=== PATIENT | male | born 1950 | race Caucasian/White ===

== ENCOUNTER → 2023-06-06 16:06 | Outpatient (REF) | payer OTHER, SELFPAY | LOC: MRI 3T 16:06 | PROVIDERS: ATTENDING PHYSICIAN Nurse Practitioner Adult Health; FAMILY PHYSICIAN Family Medicine | DX: D47.2 Monoclonal gammopathy (principal); E83.52 Hypercalcemia; Z85.46 Personal history of malignant neoplasm of prostate; C7A.1 Malignant poorly differentiated neuroendocrine tumors | CPT/HCPCS: 72158; A9575 ==

== ENCOUNTER → 2023-06-08 14:52 | Outpatient (REF) | payer OTHER, SELFPAY | LOC: MRI 3T 14:52 | PROVIDERS: ATTENDING PHYSICIAN Internal Medicine Hematology & Oncology; FAMILY PHYSICIAN Family Medicine | DX: D47.2 Monoclonal gammopathy (principal); E83.52 Hypercalcemia; Z85.46 Personal history of malignant neoplasm of prostate; C7A.1 Malignant poorly differentiated neuroendocrine tumors | CPT/HCPCS: 70553; A9575 ==

== ENCOUNTER → 2023-06-19 15:25 | Outpatient (REF) | payer OTHER, SELFPAY ==
[2023-06-19 11:33] LABS: ALT (SGPT) 28 U/L (0-50); AST (SGOT) 370 U/L (17-59); Albumin 3.7 g/dl (3.5-5.0); Alkaline Phosphatase 215 U/L (38-126); Blood Urea Nitrogen 18 mg/dl (9-20); Carbon Dioxide 26 mmol/L (22-30); Chloride 108 mmol/L (98-107); Glucose 110 mg/dl (70-99); Sodium 142 mmol/L (135-145); Total Bilirubin 0.5 mg/dl (0.2-1.3); Total Protein 6.2 g/dl (6.3-8.2); eGFR > 60.00
[2023-06-19 11:36] LABS: % Basophils 0.5 % (0-2); % Eosinophils 0.7 % (0-6); % Immature Granulocytes 2.6 % (0-0.5); % Lymphocytes 8.7 % (20.5-51.1); % Monocytes 8.4 % (1.7-9.3); % Neutrophils 79.1 % (42.2-75.2); Absolute Eosinophils 0.1 10^3/uL (0-0.7); Absolute Immature Granulocytes 0.2 10^3/uL (0-0.05); Absolute Lymphocytes 0.6 10^3/uL (1.2-3.4); Absolute Monocytes 0.6 10^3/uL (0.1-0.6); Absolute Neutrophils 5.8 10^3/uL (1.4-6.5); Hematocrit 29.1 % (39.0-52.0); Mean Corp Hgb Conc. 34.4 g/dL (33.0-37.0); Nucleated Red Blood Cells % 0.3 % (-); Red Blood Cell Count 3.03 10^6/uL (4.70-6.10); Red Cell Dist. Width 14.3 % (11.5-14.5); White Blood Cell Count 7.4 10^3/uL (4.8-10.8)
[2023-06-19 12:10] LABS: Platelet Count 76 10^3/uL (130-400)
== END ==
LOC: OIDL 15:25
PROVIDERS: ATTENDING PHYSICIAN Internal Medicine Hematology & Oncology
DX: D47.2 Monoclonal gammopathy (principal)
CPT/HCPCS: 80053; 85025

== ENCOUNTER 2023-07-08 10:23 | Emergency (ER) | payer OTHER, SELFPAY ==
[2023-07-08 10:28] VITALS: BP 141/93
--- NOTE | 2023-07-08 11:12 | ED.GENMED ---
History of Present Illness
<Kristopher De La Vega PA-C - Last Filed: 07/08/23 13:18>
General
Chief Complaint: Abdominal Symptoms
Source: patient
Exam Limitations: none
Time Seen by Provider: 07/08/23 10:54
Travel History
Have you had any contact with someone who has COVID-19?: No
Do you have any symptoms of coronavirus? Fever > 100 degrees, chills, cough, shortness of breath, sore throat, loss of taste or smell, muscle aches, or headache?: No
History of Present Illness
History of Present Illness:
72-year-old male currently with liver and bone cancer getting chemotherapy through [facility] presents with 5 days worth of bright red blood per rectum. He notes red blood around brown stool when he has bowel movements. He denies abdominal
pain nausea or vomiting. He notes fatigue. With his ongoing cancer, he has had 30 pound weight loss since January. He notes he has an appetite but nothing tastes good so he has to force himself to eat. No urinary symptoms. No other complaints
at this
Past History
<Kristopher De La Vega PA-C - Last Filed: 07/08/23 13:18>
Past History
ED Past Medical History: HTN
ED Past Surgical History: None
Social History
Tobacco: Non-smoker
Alcohol: None
Personal:
Living: alone
Employment: Employed ([employer])
Family History
Family History: Hypertension
Phy Exam
<LYUDMILA Edwards Last Filed: 07/08/23 13:18>
Physical Exam
Physical Exam:
General: Well-appearing male slightly pale no acute respiratory distress
HEENT: Normocephalic atraumatic
Heart: Regular rate and rhythm no murmurs
Lungs: Clear to auscultation bilaterally no wheezing
Abdomen is soft nontender nondistended no guarding or rebound
Rectal exam: There is a left-sided hemorrhoid that is irritated and friable at the anal orifice. Stool itself is brown in color and heme-negative.
Extremities: No sign
Course
<Kristopher De La Vega PA-C - Last Filed: 07/08/23 13:18>
Orders/Labs/Results
Orders:
Orders
07/08/23 11:14
Type+Screen Urgent
Complete Blood Count/With Diff Urgent
Comprehensive Metabolic Panel Urgent
Abnormal Lab Results
07/08/23
11:14
WBC 19.3 H 10^3/uL
(4.8-10.8)
RBC 2.65 L 10^6/uL
(4.70-6.10)
Hgb 8.9 L g/dL
(13.0-18.0)
Hct 26.2 L %
(39.0-52.0)
MCV 98.9 H fL
(80.0-94.0)
MCH 33.6 H pg
(27.0-31.0)
RDW 17.1 H %
(11.5-14.5)
Plt Count 56 L 10^3/uL
(130-400)
MPV 11.3 H fL
(7.4-10.4)
Abs Immat Gran (auto) 0.3 H 10^3/uL
(0-0.05)
Absolute Neuts (auto) 17.3 H 10^3/uL
(1.4-6.5)
Absolute Lymphs (auto) 0.7 L 10^3/uL
(1.2-3.4)
Absolute Monos (auto) 0.8 H 10^3/uL
(0.1-0.6)
Immature Gran % 1.5 H %
(0-0.5)
Neutrophils % 89.7 H %
(42.2-75.2)
Lymphocytes % 3.8 L %
(20.5-51.1)
Chloride 108 H mmol/L
(98-107)
Glucose 162 H mg/dl
(70-99)
AST 359 H U/L
(17-59)
Alkaline Phosphatase 247 H U/L
(38-126)
07/08/23 11:14
07/08/23 11:14
Vital Signs
Initial and Last Documented VS:
Initial Vital Signs
Temp Pulse Resp BP Pulse Ox
98.2 F 78 18 141/93 99
07/08/23 10:28 07/08/23 10:28 07/08/23 10:28 07/08/23 10:28 07/08/23 10:28
Last Documented Vital Signs
Temp Pulse Resp BP Pulse Ox
98.2 F 75 15 134/82 95
07/08/23 10:28 07/08/23 12:15 07/08/23 12:15 07/08/23 12:00 07/08/23 12:15
<Meño Schwartz MD - Last Filed: 07/08/23 12:20>
Orders/Labs/Results
Orders:
Orders
07/08/23 11:14
Type+Screen Urgent
Complete Blood Count/With Diff Urgent
Comprehensive Metabolic Panel Urgent
Abnormal Lab Results
07/08/23
11:14
WBC 19.3 H 10^3/uL
(4.8-10.8)
RBC 2.65 L 10^6/uL
(4.70-6.10)
Hgb 8.9 L g/dL
(13.0-18.0)
Hct 26.2 L %
(39.0-52.0)
MCV 98.9 H fL
(80.0-94.0)
MCH 33.6 H pg
(27.0-31.0)
RDW 17.1 H %
(11.5-14.5)
Plt Count 56 L 10^3/uL
(130-400)
MPV 11.3 H fL
(7.4-10.4)
Abs Immat Gran (auto) 0.3 H 10^3/uL
(0-0.05)
Absolute Neuts (auto) 17.3 H 10^3/uL
(1.4-6.5)
Absolute Lymphs (auto) 0.7 L 10^3/uL
(1.2-3.4)
Absolute Monos (auto) 0.8 H 10^3/uL
(0.1-0.6)
Immature Gran % 1.5 H %
(0-0.5)
Neutrophils % 89.7 H %
(42.2-75.2)
Lymphocytes % 3.8 L %
(20.5-51.1)
Chloride 108 H mmol/L
(98-107)
Glucose 162 H mg/dl
(70-99)
AST 359 H U/L
(17-59)
Alkaline Phosphatase 247 H U/L
(38-126)
07/08/23 11:14
07/08/23 11:14
Vital Signs
Initial and Last Documented VS:
Initial Vital Signs
Temp Pulse Resp BP Pulse Ox
98.2 F 78 18 141/93 99
07/08/23 10:28 07/08/23 10:28 07/08/23 10:07/08/23 10:07/08/23 10:28
Last Documented Vital Signs
Temp Pulse Resp BP Pulse Ox
98.2 F 75 15 134/82 95
07/08/23 10:28 07/08/23 12:15 07/08/23 12:15 07/08/23 12:00 07/08/23 12:15
<Kristopher De La Vega PA-C - Last Filed: 07/08/23 13:18>
MDM/Problems Addressed
Differential Diagnosis Includes:
Bright red blood per rectum. Exam most consistent with hemorrhoidal. No obvious evidence of fissure. Do not suspect rapid upper GI bleed secondary to stable vital signs. Stool itself has no blood in it.
Will check blood count and platelets.
<Kristopher De La Vega PA-C - Last Filed: 07/08/23 13:18>
*Critical Care Note
Total Time (30-74mins, 75-104mins- exclusive of procedures): Not Applicable
<Kristopher De La Vega PA-C - Last Filed: 07/08/23 13:18>
Update Note
Update Note:
Hemoglobin 8.9 white blood cell count 19.3. Platelets 56,000. Vital signs stable patient appears well. Likely source is hemorrhoidal. Discussed with oncology regarding the leukocytosis. He received Neupogen 8 days ago which is peak time per
oncology for leukocytosis to occur. Given benign abdominal exam do not suspect factious process. Stable for discharge with topical steroids and follow-up. Instructed to have blood checked next week for repeat platelet count and Hgb.
ED Attending Note
<Kristopher De La Vega PA-C - Last Filed: 07/08/23 13:18>
-
Portions of this chart may have been created with voice recognition software.� Occasional wrong word or��sound alike� substitutions may have occurred due to the inherent limitations of voice recognition software.
<Meño Schwartz MD - Last Filed: 07/08/23 12:20>
ED Attending Note
Patient seen and examined by attending physician: Yes
I performed the substantive portion of visit, reviewed & personally made and approve the management plan that is documented in note by myself or ANGELO.: Yes
ED Attending Note:
72-year-old male currently on chemotherapy. Complaining of bright red rectal bleeding. Not in the stool but around the stool. Has been daily for a week. Patient feels at baseline. Patient received Neupogen last week. No abdominal pain. Some
rectal irritation but no pain.
On exam patient is nontoxic in no distress. Warm and dry. Grossly nonfocal. Benign abdomen. Rectal exam was done by the physician commissary assistant. All consistent with hemorrhoidal bleeding. Feel reasonable to treat this with outpatient hemorrhoidal
management and close follow-up. We will let hematology oncology know about the labs. Leukocytosis likely secondary to Neupogen. Platelets have been running lower with the chemo.
Discharge Plan
Departure
Patient Disposition: Home (Routine Discharge)
Date of Disposition: 07/08/23
Time of Disposition: 13:16
Patient with high blood pressure during this ER visit?: No
Discharge Problem:
Hemorrhoids
Instructions: Hemorrhoids
Prescriptions:
New
hydrocortisone [Proctocort] 1 % cream
1 applic topical TID Qty: 28.35 0RF
No Action
hydralazine 50 mg Tablet
50 mg PO BID
bupropion HCl 150 mg Tablet Sustained-Release 12 Hr
150 mg PO DAILY
atenolol 25 mg Tablet
25 mg PO HS
tamsulosin 0.4 mg Capsule
0.4 mg PO DAILY
omeprazole 20 mg Capsule,Delayed Release(Dr/Ec)
20 mg PO DAILY
allopurinol 300 mg Tablet
300 mg PO DAILY
eplerenone 50 mg Tablet
100 mg PO BID
oxycodone 5 mg Tablet
5 mg PO Q6H PRN (Reason: pain)
Patient Comments:
only takes at night
Referrals:
Meño Jimenez DO [Family Provider] -
Activity Restrictions/Additional Instructions:
Use topical steroid as directed. Keep stool soft. Please return here for worsening bleeding. Please check blood work this week to recheck blood count and platelets.
Interventions
Interventions:
*Risk Screen - Suicide Last Done: 07/08/23 11:05
*General Assessment Last Done: 07/08/23 11:05
*Neglect/Abuse Screening Last Done: 07/08/23 11:05
ED- Fall Risk Assessment Last Done: 07/08/23 11:05
*ED COVID-19 Vaccine History Last Done: 07/08/23 11:05
VI-Dbrfuz-Btcqpmzgza Assessment Last Done: 07/08/23 11:05
[2023-07-08 11:22] VITALS: BP 138/88
[2023-07-08 11:35] LABS: % Basophils 0.8 % (0-2); % Eosinophils 0.3 % (0-6); % Immature Granulocytes 1.5 % (0-0.5); % Lymphocytes 3.8 % (20.5-51.1); % Monocytes 3.9 % (1.7-9.3); % Neutrophils 89.7 % (42.2-75.2); Absolute Basophils 0.2 10^3/uL (0-0.2); Absolute Eosinophils 0.1 10^3/uL (0-0.7); Absolute Immature Granulocytes 0.3 10^3/uL (0-0.05); Absolute Lymphocytes 0.7 10^3/uL (1.2-3.4); Absolute Monocytes 0.8 10^3/uL (0.1-0.6); Absolute Neutrophils 17.3 10^3/uL (1.4-6.5); Hematocrit 26.2 % (39.0-52.0); Hemoglobin 8.9 g/dL (13.0-18.0); Mean Corpuscular Hgb 33.6 pg (27.0-31.0); Mean Corpuscular Volume 98.9 fL (80.0-94.0); Nucleated Red Blood Cells % 0 % (-); Red Blood Cell Count 2.65 10^6/uL (4.70-6.10); Red Cell Dist. Width 17.1 % (11.5-14.5); White Blood Cell Count 19.3 10^3/uL (4.8-10.8)
[2023-07-08 11:43] LABS: ALT (SGPT) 25 U/L (0-50); AST (SGOT) 359 U/L (17-59); Albumin 4.1 g/dl (3.5-5.0); Alkaline Phosphatase 247 U/L (38-126); Blood Urea Nitrogen 14 mg/dl (9-20); Calcium 8.4 mg/dl (8.4-10.2); Carbon Dioxide 24 mmol/L (22-30); Chloride 108 mmol/L (98-107); Glucose 162 mg/dl (70-99); Sodium 138 mmol/L (135-145); Total Bilirubin 0.5 mg/dl (0.2-1.3); Total Protein 6.6 g/dl (6.3-8.2); eGFR > 60.00
[2023-07-08 11:57] LABS: Platelet Count 56 10^3/uL (130-400)
[2023-07-08 11:58] LABS: Mean Platelet Volume 11.3 fL (7.4-10.4)
[2023-07-08 12:00] VITALS: BP 134/82
[2023-07-08 13:00] VITALS: BP 132/80
[2023-07-08 13:42] VITALS: BP 132/80
== END 2023-07-08 13:43 | disposition home or self-care (01) ==
LOC: EMR 10:23
PROVIDERS: Physician Assistant; EMERGENCY PHYSICIAN Emergency Medicine; FAMILY PHYSICIAN Family Medicine
DX: K62.5 Hemorrhage of anus and rectum (principal); K64.9 Unspecified hemorrhoids; R63.4 Abnormal weight loss; R53.83 Other fatigue; C22.8 Malignant neoplasm of liver, primary, unspecified as to type; C79.51 Secondary malignant neoplasm of bone; I10 Essential (primary) hypertension
CPT/HCPCS: 99283; 80053; 85025; 86850; 86900; 86901

== ENCOUNTER 2023-07-13 10:03 | Emergency (ER) | payer OTHER, SELFPAY ==
[2023-07-13 10:09] VITALS: BP 130/87
--- NOTE | 2023-07-13 11:01 | ED.GENMED ---
History of Present Illness
<Andie Koroma PA-C - Last Filed: 07/13/23 12:54>
General
Chief Complaint: Musculo-Skeletal Complaint
Source: patient
Exam Limitations: none
Time Seen by Provider: 07/13/23 10:42
Nursing documentation reviewed up to this point in time: agreed with
Travel History
Have you had any contact with someone who has COVID-19?: No
Do you have any symptoms of coronavirus? Fever > 100 degrees, chills, cough, shortness of breath, sore throat, loss of taste or smell, muscle aches, or headache?: No
History of Present Illness
History of Present Illness:
Patient is a 72-year-old male currently undergoing chemotherapy for liver/bone cancer presenting for evaluation of right shoulder pain. He states that he was attempting to start his generator on Monday due to a power outage but was unable to
started due to generalized weakness-which he is attributing to his chemotherapy. He states that on Monday morning he noticed pain in his right shoulder worse with movement. Pain persisted and this morning he was planning on coming to the
emergency department for evaluation when he noticed he had significant bruising on his right flank. He still has pain in right shoulder worse with movement but denies any numbness/tingling of right upper extremity.
He denies any chest pain, shortness of breath, urinary symptoms. He denies any abdominal pain. He denies any trauma or falls.
Patient is not on any blood thinners. He does report low platelet count due to chemotherapy.
Past History
<Andie Koroma PA-C - Last Filed: 07/13/23 12:54>
Past History
ED Past Medical History: HTN
ED Past Surgical History: None
Social History
Tobacco: Non-smoker
Alcohol: None
Personal:
Living: alone
Employment: Employed ([employer])
Family History
Family History: Hypertension
Phy Exam
<Andie Koroma PA-C - Last Filed: 07/13/23 12:54>
Physical Exam
Physical Exam:
General: Well appearing and non-toxic
Vitals: Tachycardic, otherwise vital signs stable, afebrile
HEENT: Atraumatic, normocephalic; protecting airway
Neck: appears supple, no cervical spine or midline spinal tenderness
CV: Tachycardic, regular rhythm, heart sounds normal, no evidence of cyanosis
Resp: No evidence of respiratory distress, lungs clear bilaterally
Abd: Soft, nontender, non-distended; no CVA tenderness
Extremities: Pain with abduction of right shoulder but no tenderness to palpation, no obvious deformity of right upper extremity, active shoulder adduction fully intact against resistance; right upper extremity neurovascularly intact; full range of
motion of right elbow and right wrist, radial pulse palpable
Neuro: alert and oriented x 3; grossly intact
Psych: Normal affect
Skin: Intact, no rashes�significant ecchymosis on lower right axilla and right flank
Course
<Andie Koroma PA-C - Last Filed: 07/13/23 12:54>
Orders/Labs/Results
Orders:
Orders
07/13/23 11:02
Shoulder, Right 2 Views [CR Shoulder - Right Min 2 View] Urgent
Comment:
Reason For Exam: right shoulder pain
07/13/23 11:07
Ribs, Right 3 View W/PA Chest [CR Ribs-right 3 Vw W/pa Chest*] Urgent
Comment:
Reason For Exam: bruising right flank
07/13/23 12:42
Sling Right-Treatment ONCE
Vital Signs
Initial and Last Documented VS:
Initial Vital Signs
Temp Pulse Resp BP Pulse Ox
36.5 C 110 16 130/87 98
07/13/23 10:09 07/13/23 10:09 07/13/23 10:09 07/13/23 10:09 07/13/23 10:09
Last Documented Vital Signs
Temp Pulse Resp BP Pulse Ox
36.5 C 99 16 130/87 99
07/13/23 10:09 07/13/23 13:19 07/13/23 10:09 07/13/23 10:09 07/13/23 13:19
<Armando Aguirre MD - Last Filed: 07/13/23 14:38>
Orders/Labs/Results
Orders:
Orders
07/13/23 11:02
Shoulder, Right 2 Views [CR Shoulder - Right Min 2 View] Urgent
Comment:
Reason For Exam: right shoulder pain
07/13/23 11:07
Ribs, Right 3 View W/PA Chest [CR Ribs-right 3 Vw W/pa Chest*] Urgent
Comment:
Reason For Exam: bruising right flank
07/13/23 12:42
Sling Right-Treatment ONCE
Vital Signs
Initial and Last Documented VS:
Initial Vital Signs
Temp Pulse Resp BP Pulse Ox
36.5 C 110 16 130/87 98
07/13/23 10:09 07/13/23 10:09 07/13/23 10:09 07/13/23 10:09 07/13/23 10:09
Last Documented Vital Signs
Temp Pulse Resp BP Pulse Ox
36.5 C 99 16 130/87 99
07/13/23 10:09 07/13/23 13:19 07/13/23 10:09 07/13/23 10:09 07/13/23 13:19
<Andie Koroma PA-C - Last Filed: 07/13/23 12:54>
MDM/Problems Addressed
Differential Diagnosis Includes:
Rotator cuff injury, bursitis, ligamentous injury/sprain, tendinitis, doubt fracture
MDM/Problems Addressed:
Patient is a 72-year-old male currently undergoing chemotherapy for liver/bone cancer presenting for evaluation of right shoulder pain with associated bruising of right lower axilla and flank. Initially noticed on Monday morning after attempting
to start generator on Monday. He does report low platelet counts with chemotherapy. No chest pain, shortness of breath. No recent trauma or falls. Patient is slightly tachycardic otherwise vital signs stable. Physical exam as documented above.
He does have limited shoulder abduction due to pain with no obvious deformity or bony tenderness. There is associated significant ecchymoses of right lower axilla and flank. I suspect this is likely due to low platelet count. Minimal tenderness
overlying bruising. He denies any analgesia at this time. Will check x-ray of right shoulder and right ribs given ecchymosis. will reassess
X-ray of right shoulder and right ribs show no acute fractures, dislocations, separations. There were some degenerative changes seen and some lesions consistent with metastatic disease on the proximal humerus, scapula, right ribs. Patient has
known liver cancer with mets to bone. Findings were discussed with patient.
Likely shoulder sprain or ligament injury with ecchymoses related to low platelets. No acute findings on x-ray. Will discharge with shoulder sling, Ortho follow-up as needed. Patient will follow-up with oncologist regarding lesion seen on x-ray
and for recommendations on pain control given he was told to avoid the Tylenol and NSAIDs. Patient comfortable this plan. All questions answered.
Chronic conditions affecting care:
Liver/bone cancer with thrombocytopenia
Acute Exacerbation and/or Progression of Chronic Illness:
Metastatic disease
<Andie Koroma PA-C - Last Filed: 07/13/23 12:54>
*Radiology
Radiology exam reviewed: preliminary read by ED provider and radiology read reviewed
*Pulse Oximetry
Patient hypoxic: no
*Quality Assurance/R&D Lab Technician Interpretation
Rate: Quality Assurance/R&D Lab Technician- N/A
*Critical Care Note
Total Time (30-74mins, 75-104mins- exclusive of procedures): Not Applicable
ED Attending Note
<Andie Koroma PA-C - Last Filed: 07/13/23 12:54>
-
Portions of this chart may have been created with voice recognition software.� Occasional wrong word or��sound alike� substitutions may have occurred due to the inherent limitations of voice recognition software.
<Armando Aguirre MD - Last Filed: 07/13/23 14:38>
ED Attending Note
Patient seen and examined by attending physician: Yes
ED Attending Note:
HPI: 72-year-old male with history as documented presents to the emergency room for evaluation of right shoulder pain. Patient reports that he was pulling the cord to start his generator when his power went out on Monday and the next day he woke up
with significant pain in the right shoulder and pain with lifting the right arm. Pain has continued since today he woke up he noticed he had some bruising in the right chest wall and decided to come to the emergency room to be assessed. He denies
any chest pain. Denies any falls or trauma to the chest wall. He denies any shortness of breath. He denies any blood thinners.
ROS: Positive for shoulder pain; negative for chest pain, shortness of breath
Physical exam:
General: Well appearing and non-toxic
HEENT: protecting airway
Neck: appears supple
CV: No evidence of cyanosis; he does have some ecchymosis along the right chest wall in the midaxillary line but no significant tenderness
Resp: No accessory muscle use
Abd: Non-distended
Extremities: No deformity of the right shoulder; he has some mild tenderness along the anterior humeral head; he has pain with abduction and external rotation but is able to move his right shoulder through full active range of motion
Neuro: Alert
Psych: Normal affect
Skin: Intact
Differential diagnosis: Rotator cuff tear, rotator cuff tendinitis, fracture, dislocation; must consider rib fracture although suspect ecchymosis is from gravity causing migration of blood from the shoulder injury
Medical decision m[age]-year-old male presents for evaluation of right shoulder injury; today noted some bruising to his chest wall although he has no chest wall pain or trauma. Exam as above sent for x-ray of the shoulder and ribs which showed
no fractures. Suspect likely rotator cuff injury or tendinopathy and suspect chest wall bruising is from migration of blood from shoulder injury due to gravity. Will plan to place patient in sling refer to orthopedics for follow-up. He feels
comfortable with this plan. Spoke about return precautions all questions answered.
Chronic conditions affecting care: N/A
Acute exacerbation or progression of chronic illness: N/A
History source: Patient
Data reviewed: N/A
Medications/testing considered: N/A
Social determinants of health: N/A
Discussion with other providers: N/A
Discharge Plan
Departure
Patient Disposition: Home (Routine Discharge)
Date of Disposition: 07/13/23
Time of Disposition: 12:43
Patient with high blood pressure during this ER visit?: Yes
Condition: Good
Covid-19: Not Applicable
Discharge Problem:
Injury of right shoulder
Instructions: Shoulder Pain (DC), How to Use a Shoulder Sling, BLOOD PRESSURE
Prescriptions:
No Action
hydralazine 50 mg Tablet
50 mg PO BID
bupropion HCl 150 mg Tablet Sustained-Release 12 Hr
150 mg PO DAILY
atenolol 25 mg Tablet
25 mg PO HS
tamsulosin 0.4 mg Capsule
0.4 mg PO DAILY
omeprazole 20 mg Capsule,Delayed Release(Dr/Ec)
20 mg PO DAILY
allopurinol 300 mg Tablet
300 mg PO DAILY
eplerenone 50 mg Tablet
100 mg PO BID
oxycodone 5 mg Tablet
5 mg PO Q6H PRN (Reason: pain)
Patient Comments:
only takes at night
hydrocortisone [Proctocort] 1 % cream
1 applic topical TID Qty: 28.35 0RF
Referrals:
Meño Jimenez, DO [Family Provider] -
Nabor Morgan MD [Active] - As needed
Activity Restrictions/Additional Instructions:
- Return to the emergency department with any severe pain, worsening in bruising, numbness/tingling in right arm, high fevers, significant swelling, worsening in current symptoms, or any other concerns
-You can use the shoulder sling over the next few weeks for comfort. As discussed�you should follow-up with your oncologist for the most appropriate pain regimen.
-As discussed�there were some lucent/lytic lesions seen on the x-ray of the shoulder consistent with likely metastatic disease. You should follow-up with your oncologist for further evaluation/management
-If symptoms persist/worsen�you should follow-up with Orthopedics
Interventions
Interventions:
*Risk Screen - Suicide Last Done: 07/13/23 13:19
*General Assessment Last Done: 07/13/23 13:19
*Neglect/Abuse Screening Last Done: 07/13/23 13:19
ED- Fall Risk Assessment Last Done: 07/13/23 13:19
*ED COVID-19 Vaccine History Last Done: 07/13/23 10:09
*Nursing Disposition Last Done: 07/13/23 13:19
ED-Musculoskeletal Assessment Last Done: 07/13/23 13:19
Discharge Date and Time
Discharge Date/Time: 07/13/23 13:20
== END 2023-07-13 13:20 | disposition home or self-care (01) ==
LOC: EMR 10:03
PROVIDERS: EMERGENCY PHYSICIAN Emergency Medicine; FAMILY PHYSICIAN Family Medicine
DX: S49.91XA Unspecified injury of right shoulder and upper arm, initial encounter (principal); S20.211A Contusion of right front wall of thorax, initial encounter; X58.XXXA Exposure to other specified factors, initial encounter; I10 Essential (primary) hypertension; C79.51 Secondary malignant neoplasm of bone; D69.6 Thrombocytopenia, unspecified; Z82.49 Family history of ischemic heart disease and other diseases of the circulatory system; Z85.46 Personal history of malignant neoplasm of prostate
CPT/HCPCS: 99283; 71101; 73030

== ENCOUNTER 2023-07-20 10:35 | Outpatient (RCR) | payer OTHER, SELFPAY ==
[2023-07-19 12:09] VITALS: BP 167/92
[2023-07-19 12:27] VITALS: BP 154/83
[2023-07-19 14:18] VITALS: BP 164/92
[2023-07-20 11:24] VITALS: BP 144/90
[2023-07-20 11:42] VITALS: BP 132/81
[2023-07-20 13:56] VITALS: BP 139/83
== END 2023-07-30 23:59 | disposition home or self-care (01) ==
LOC: OID 10:35
PROVIDERS: ATTENDING PHYSICIAN Internal Medicine Hematology & Oncology; FAMILY PHYSICIAN Family Medicine
DX: D47.2 Monoclonal gammopathy (principal)
CPT/HCPCS: 36415; 36430; 86850; 86900; 86901; 86920; P9016

== ENCOUNTER → 2023-08-11 08:51 | Outpatient (REF) | payer OTHER, SELFPAY | LOC: PET 08:51 | PROVIDERS: ATTENDING PHYSICIAN Internal Medicine Hematology & Oncology | DX: C7A.1 Malignant poorly differentiated neuroendocrine tumors (principal) | CPT/HCPCS: 78815; A9552 ==

== ENCOUNTER → 2023-10-13 11:36 | Outpatient (REF) | payer OTHER, SELFPAY | LOC: RAD 11:36 | PROVIDERS: ATTENDING PHYSICIAN Internal Medicine Hematology & Oncology; FAMILY PHYSICIAN Family Medicine | DX: Z85.46 Personal history of malignant neoplasm of prostate (principal); C7A.1 Malignant poorly differentiated neuroendocrine tumors; G89.3 Neoplasm related pain (acute) (chronic) | CPT/HCPCS: 71275; Q9967 ==

== ENCOUNTER 2023-10-16 00:42 | Emergency (ER) | payer OTHER, SELFPAY ==
[2023-10-16] VITALS (7 sets, daily range): BP systolic 136–149; BP diastolic 96–109; BMI 20.6
--- NOTE | 2023-10-16 00:50 | ED.GENMED ---
History of Present Illness
<Sunil Mcmullen PA-C - Last Filed: 10/16/23 14:59>
General
Chief Complaint: Abdominal Pain
Time Seen by Provider: 10/16/23 00:49
History of Present Illness
History of Present Illness:
73 yo male w/ hx of metastatic neuroendocrine tumor presents to the Emergency Department for evaluation of RUQ Pain beginning this evening, worsening since onset. Somewhat improved after receiving 15mg IV toradol enroute via EMS. Not currently on
chemotherapy. Reports he has 'lived on Boost' for 6+ months. No associated chest pain, fevers. On arrival is diaphoretic, but he states 'the rig was hot'. Of note, had a CTA chest 3d ago that was negative for PE.
Past History
<Sunil Mcmullen PA-C - Last Filed: 10/16/23 14:59>
Past History
ED Past Medical History: HTN
ED Past Surgical History: None
Social History
Tobacco: Non-smoker
Alcohol: None
Personal:
Living: alone
Employment: Employed ([employer])
Family History
Family History: Hypertension
Review of Systems
<Sunil Mcmullen PA-C - Last Filed: 10/16/23 14:59>
Review of Systems
Allergies reviewed?: Yes
All Other Systems: ROS reviewed and negative except as documented in HPI and ROS
Phy Exam
<Sunil Mcmullen PA-C - Last Filed: 10/16/23 14:59>
Physical Exam
Physical Exam:
GEN: Chronically ill appearing, diaphoretic, NAD
Eyes: PERRLA, EOMs intact, no scleral icterus
HENT: NCAT, oral mucosa moist
Lungs: CTAB, no wheezes, rales, rhonchi, normal chest wall excursion
Chest: Port in R upper chest wall
Cardiac: Tachycardic, regular
Abdomen: Hepatomegaly w/ RUQ firmness noted; markedly tender to RUQ and RLQ
Neuro: AO x 3
MSK: No gross deformity or ecchymosis. No edema. No digital clubbing
Skin: No rashes, petechiae. Generally pale
Psych: Calm, cooperative, proper hygiene
Course
<Sunil Mcmullen PA-C - Last Filed: 10/16/23 14:59>
Orders/Labs/Results
Orders:
Orders
10/16/23 00:49
Electrocardiogram (*1) Urgent
Reason for Study: Abdominal Pain
CT Abd/Pel (IV only)-DH only Urgent
Comment:
Reason For Exam: RUQ pain
EKG- Treatment ONCE
0.9% Sodium Chloride 1000 ml [Nss] 1,000 ml IV BOLUS
10/16/23 00:53
Complete Blood Count/With Diff Urgent
Comprehensive Metabolic Panel Urgent
Lipase Urgent
Prothrombin Time Urgent
10/16/23 00:54
Type+Screen Urgent
Lactic Acid Q4H
Comment: CANCEL 2nd LACTIC ACID IF 1st LACTIC ACID IS LESS THAN 2
Blood Culture Q30M
RUT Source: Blood/Venous
Specimen Description:
Blood Culture Q30M
RUT Source: Blood/Venous
Specimen Description:
10/16/23 05:43
Oxycodone [Roxicodone] 5 mg PO NOW STA
Abnormal Lab Results
10/16/23 10/16/23
00:53 00:54
WBC 12.8 H 10^3/uL
(4.8-10.8)
RBC 3.56 L 10^6/uL
(4.70-6.10)
Hgb 11.9 L g/dL
(13.0-18.0)
Hct 34.7 L %
(39.0-52.0)
MCV 97.5 H fL
(80.0-94.0)
MCH 33.4 H pg
(27.0-31.0)
RDW 14.6 H %
(11.5-14.5)
MPV 10.9 H fL
(7.4-10.4)
Abs Immat Gran (auto) 0.1 H 10^3/uL
(0-0.05)
Absolute Neuts (auto) 11.3 H 10^3/uL
(1.4-6.5)
Absolute Lymphs (auto) 0.5 L 10^3/uL
(1.2-3.4)
Absolute Monos (auto) 0.9 H 10^3/uL
(0.1-0.6)
Immature Gran % 0.6 H %
(0-0.5)
Neutrophils % 88.4 H %
(42.2-75.2)
Lymphocytes % 3.9 L %
(20.5-51.1)
PT 15.7 H Sec
(11.4-14.6)
Carbon Dioxide 19 L mmol/L
(22-30)
BUN 33 H mg/dl
(9-20)
Creatinine 1.4 H mg/dL
(0.7-1.3)
Glucose 148 H mg/dl
(70-99)
Lactic Acid 3.2 H mmol/L
(0.7-2.0)
AST 1328 H* U/L
(17-59)
ALT 127 H U/L
(0-50)
Alkaline Phosphatase 351 H U/L
(38-126)
Albumin 3.4 L g/dl
(3.5-5.0)
10/16/23 00:53
10/16/23 00:53
Vital Signs
Initial and Last Documented VS:
Initial Vital Signs
Temp Pulse Resp BP Pulse Ox
97.9 F 115 27 143/109 95
10/16/23 00:45 10/16/23 00:45 10/16/23 00:45 10/16/23 00:45 10/16/23 00:45
Last Documented Vital Signs
Temp Pulse Resp BP Pulse Ox
97.9 F 99 20 149/100 94
10/16/23 00:45 10/16/23 05:00 10/16/23 05:00 10/16/23 05:00 10/16/23 05:00
<Vimal Moseley, DO - Last Filed: 10/16/23 03:31>
Orders/Labs/Results
Orders:
Orders
10/16/23 00:49
Electrocardiogram (*1) Urgent
Reason for Study: Abdominal Pain
CT Abd/Pel (IV only)-DH only Urgent
Comment:
Reason For Exam: RUQ pain
EKG- Treatment ONCE
0.9% Sodium Chloride 1000 ml [Nss] 1,000 ml IV BOLUS
10/16/23 00:53
Complete Blood Count/With Diff Urgent
Comprehensive Metabolic Panel Urgent
Lipase Urgent
Prothrombin Time Urgent
10/16/23 00:54
Type+Screen Urgent
Lactic Acid Q4H
Comment: CANCEL 2nd LACTIC ACID IF 1st LACTIC ACID IS LESS THAN 2
Blood Culture Q30M
RUT Source: Blood/Venous
Specimen Description:
Blood Culture Q30M
RUT Source: Blood/Venous
Specimen Description:
10/16/23 05:43
Oxycodone [Roxicodone] 5 mg PO NOW STA
Abnormal Lab Results
10/16/23 10/16/23
00:53 00:54
WBC 12.8 H 10^3/uL
(4.8-10.8)
RBC 3.56 L 10^6/uL
(4.70-6.10)
Hgb 11.9 L g/dL
(13.0-18.0)
Hct 34.7 L %
(39.0-52.0)
MCV 97.5 H fL
(80.0-94.0)
MCH 33.4 H pg
(27.0-31.0)
RDW 14.6 H %
(11.5-14.5)
MPV 10.9 H fL
(7.4-10.4)
Abs Immat Gran (auto) 0.1 H 10^3/uL
(0-0.05)
Absolute Neuts (auto) 11.3 H 10^3/uL
(1.4-6.5)
Absolute Lymphs (auto) 0.5 L 10^3/uL
(1.2-3.4)
Absolute Monos (auto) 0.9 H 10^3/uL
(0.1-0.6)
Immature Gran % 0.6 H %
(0-0.5)
Neutrophils % 88.4 H %
(42.2-75.2)
Lymphocytes % 3.9 L %
(20.5-51.1)
PT 15.7 H Sec
(11.4-14.6)
Carbon Dioxide 19 L mmol/L
(22-30)
BUN 33 H mg/dl
(9-20)
Creatinine 1.4 H mg/dL
(0.7-1.3)
Glucose 148 H mg/dl
(70-99)
Lactic Acid 3.2 H mmol/L
(0.7-2.0)
AST 1328 H* U/L
(17-59)
ALT 127 H U/L
(0-50)
Alkaline Phosphatase 351 H U/L
(38-126)
Albumin 3.4 L g/dl
(3.5-5.0)
10/16/23 00:53
10/16/23 00:53
Vital Signs
Initial and Last Documented VS:
Initial Vital Signs
Temp Pulse Resp BP Pulse Ox
97.9 F 115 27 143/109 95
10/16/23 00:45 10/16/23 00:45 10/16/23 00:45 10/16/23 00:45 10/16/23 00:45
Last Documented Vital Signs
Temp Pulse Resp BP Pulse Ox
97.9 F 99 20 149/100 94
10/16/23 00:45 10/16/23 05:00 10/16/23 05:00 10/16/23 05:00 10/16/23 05:00
<Sunil Mcmullen PA-C - Last Filed: 10/16/23 14:59>
MDM/Problems Addressed
MDM/Problems Addressed:
73-year-old male with history of metastatic neuroendocrine tumor presents with acute onset of right upper quadrant abdominal pain. On arrival his pain was much improved after IV Toradol given prehospital. His labs show numerous abnormalities that
are likely primarily chronic in nature, lactic acidosis likely on the basis of chronic liver injury. Does have marked transaminitis however no hyperbilirubinemia suggesting obstructive pathology, likely disease progression from his neuroendocrine
cancer. Patient's pain remained quite controlled emergency department. CT scan pending. Plan if no acute findings patient will be discharged with opiates for pain, if any new findings/acute surgical pathology, disposition to be determined. Care
signed out to Dr Moseley pending CT
<Vimal Moseley DO - Last Filed: 10/16/23 03:31>
*Radiology
Radiology exam reviewed: radiology read reviewed (CT abdomen pelvis shows hepatic hypoattenuating lesions in the liver and liver capsule, decreased attenuation of the liver parenchyma, suspicion for vascular process such as segmental portal vein
thrombosis. Portal vein patent proximally)
*Pulse Oximetry
Patient hypoxic: no
*EKG
Interpreted by ED Provider?: Yes
EKG Intrepretation Date: 10/16/23
EKG Intrepretation Time: 00:51
Interpretation: abnormal
Comparison EKG: changes noted
Heart Rate: 114
Rate: tachycardiac
Rhythm: PVC's and sinus tachycardia
[place]: left axis deviation
Interval: normal interval
QRS Pattern: normal QRS
Ischemia: no ischemia
*[employer] Interpretation
Rate: normal
Interpretation: normal
Heart Rate: 95
Rhythm: sinus
*Critical Care Note
Total Time (30-74mins, 75-104mins- exclusive of procedures): Not Applicable
Data Reviewed
Review of Other/Old Records Reveals: Radiology Studies (Recent CT chest no signs of PE)
Source: records
<Vimal Moseley DO - Last Filed: 10/16/23 03:31>
Patient Management
Social determinants of health affecting care: Living situation and Strong social support
Escalation/DeEscalation of care consider admission/obs:
Admit not indicated
ED Attending Note
<Sunil Mcmullen PA-C - Last Filed: 10/16/23 14:59>
-
Portions of this chart may have been created with voice recognition software.� Occasional wrong word or��sound alike� substitutions may have occurred due to the inherent limitations of voice recognition software.
<Vimal Moseley DO - Last Filed: 10/16/23 03:31>
ED Attending Note
Patient seen and examined by attending physician: Yes
ED Attending Note:
I have reviewed and agree with history and treatment by Pavan Mcmullen. My exam revealed 73-year-old male no acute distress, afebrile. CT abdomen pelvis with no acute findings, unclear if vascular process affecting liver parenchyma. Patient improved,
stable to follow-up with oncology.
Discharge Plan
Departure
Patient Disposition: Home (Routine Discharge)
Date of Disposition: 10/16/23
Time of Disposition: 03:29
Patient with high blood pressure during this ER visit?: Yes
Condition: Good
Discharge Problem:
Abdominal pain, acute, right upper quadrant, Neuroendocrine tumor
Instructions: Abdominal Pain, BLOOD PRESSURE
Prescriptions:
New
oxycodone 5 mg tablet
5 mg PO Q8H PRN (Reason: Pain) Qty: 12 0RF
No Action
hydralazine 50 mg Tablet
50 mg PO BID
bupropion HCl 150 mg Tablet Sustained-Release 12 Hr
150 mg PO DAILY
atenolol 25 mg Tablet
25 mg PO HS
tamsulosin 0.4 mg Capsule
0.4 mg PO DAILY
omeprazole 20 mg Capsule,Delayed Release(Dr/Ec)
20 mg PO DAILY
allopurinol 300 mg Tablet
300 mg PO DAILY
eplerenone 50 mg Tablet
100 mg PO BID
Referrals:
Meño Jimenez DO [Family Provider] -
Interventions
Interventions:
*Risk Screen - Suicide Last Done: 10/16/23 00:45
*General Assessment Last Done: 10/16/23 00:45
*Neglect/Abuse Screening Last Done: 10/16/23 00:45
ED- Fall Risk Assessment Last Done: 10/16/23 01:17
*ED COVID-19 Vaccine History Last Done: 10/16/23 00:45
*Nursing Disposition Last Done: 10/16/23 06:03
PJ-Odmnvo-Popyybahig Assessment Last Done: 10/16/23 01:17
Discharge Date and Time
Discharge Date/Time: 10/16/23 06:20
Print Language: NIGERIEN
[2023-10-16 01:05] LABS: % Basophils 0.2 % (0-2); % Immature Granulocytes 0.6 % (0-0.5); % Lymphocytes 3.9 % (20.5-51.1); % Monocytes 6.9 % (1.7-9.3); % Neutrophils 88.4 % (42.2-75.2); Absolute Immature Granulocytes 0.1 10^3/uL (0-0.05); Absolute Lymphocytes 0.5 10^3/uL (1.2-3.4); Absolute Monocytes 0.9 10^3/uL (0.1-0.6); Absolute Neutrophils 11.3 10^3/uL (1.4-6.5); Hematocrit 34.7 % (39.0-52.0); Hemoglobin 11.9 g/dL (13.0-18.0); Mean Corp Hgb Conc. 34.3 g/dL (33.0-37.0); Mean Corpuscular Hgb 33.4 pg (27.0-31.0); Mean Corpuscular Volume 97.5 fL (80.0-94.0); Mean Platelet Volume 10.9 fL (7.4-10.4); Nucleated Red Blood Cells % 0 % (-); Platelet Count 260 10^3/uL (130-400); Red Blood Cell Count 3.56 10^6/uL (4.70-6.10); Red Cell Dist. Width 14.6 % (11.5-14.5); White Blood Cell Count 12.8 10^3/uL (4.8-10.8)
[2023-10-16] MEDS: NSS 1000 IV (01:08)
[2023-10-16 01:18] LABS: Lactic Acid 3.2 mmol/L (0.7-2.0)
[2023-10-16 01:20] LABS: ALT (SGPT) 127 U/L (0-50); Albumin 3.4 g/dl (3.5-5.0); Alkaline Phosphatase 351 U/L (38-126); Blood Urea Nitrogen 33 mg/dl (9-20); Calcium 8.5 mg/dl (8.4-10.2); Carbon Dioxide 19 mmol/L (22-30); Chloride 107 mmol/L (98-107); Estimated Creatinine Clearance 43 ml/min; Glucose 148 mg/dl (70-99); Lipase 264 U/L (23-300); Potassium 4.5 mmol/L (3.5-5.1); Sodium 141 mmol/L (135-145); Total Bilirubin 0.7 mg/dl (0.2-1.3); Total Protein 6.8 g/dl (6.3-8.2); eGFR 52.41
[2023-10-16 01:21] LABS: INR 1.27; PT 15.7 Sec (11.4-14.6)
[2023-10-16 01:39] LABS: AST (SGOT) 1328 U/L (17-59)
[2023-10-16] MEDS: ROXICODONE 5 MG PO (06:11)
== END 2023-10-16 06:20 | disposition home or self-care (01) ==
LOC: EMR 00:42
PROVIDERS: Physician Assistant; EMERGENCY PHYSICIAN Emergency Medicine; FAMILY PHYSICIAN Family Medicine
DX: R10.11 Right upper quadrant pain (principal); C7B.8 Other secondary neuroendocrine tumors; I10 Essential (primary) hypertension
CPT/HCPCS: 99284; 96360; 74177; 80053; 83605; 83690; 85025; 85610; 86850; 86900; 86901; 87040; 93005; Q9967

== ENCOUNTER 2023-10-17 11:09 | Outpatient (RCR) | payer OTHER, SELFPAY ==
[2023-10-17 11:16] LABS: % Basophils 0.2 % (0-2); % Immature Granulocytes 0.5 % (0-0.5); % Lymphocytes 3.1 % (20.5-51.1); % Monocytes 5.4 % (1.7-9.3); % Neutrophils 90.8 % (42.2-75.2); Absolute Immature Granulocytes 0.1 10^3/uL (0-0.05); Absolute Lymphocytes 0.4 10^3/uL (1.2-3.4); Absolute Monocytes 0.6 10^3/uL (0.1-0.6); Absolute Neutrophils 10.8 10^3/uL (1.4-6.5); Hematocrit 33.9 % (39.0-52.0); Hemoglobin 11.1 g/dL (13.0-18.0); Mean Corp Hgb Conc. 32.7 g/dL (33.0-37.0); Mean Corpuscular Hgb 33.5 pg (27.0-31.0); Mean Corpuscular Volume 102.4 fL (80.0-94.0); Mean Platelet Volume 10.5 fL (7.4-10.4); Platelet Count 308 10^3/uL (130-400); Red Blood Cell Count 3.31 10^6/uL (4.70-6.10); Red Cell Dist. Width 14.6 % (11.5-14.5); White Blood Cell Count 11.9 10^3/uL (4.8-10.8)
[2023-10-17 11:59] LABS: Albumin 3.4 g/dl (3.5-5.0); Alkaline Phosphatase 343 U/L (38-126); Blood Urea Nitrogen 40 mg/dl (9-20); Calcium 8.1 mg/dl (8.4-10.2); Carbon Dioxide 18 mmol/L (22-30); Chloride 104 mmol/L (98-107); Glucose 206 mg/dl (70-99); Potassium 4.9 mmol/L (3.5-5.1); Sodium 137 mmol/L (135-145); Total Bilirubin 0.9 mg/dl (0.2-1.3); Total Protein 6.6 g/dl (6.3-8.2); eGFR 36.33
[2023-10-17 12:45] LABS: ALT (SGPT) 199 U/L (0-50)
[2023-10-17 12:47] LABS: AST (SGOT) 1662 U/L (17-59)
== END 2023-10-29 23:59 | disposition home or self-care (01) ==
LOC: OID 11:09
PROVIDERS: ATTENDING PHYSICIAN Internal Medicine Hematology & Oncology; FAMILY PHYSICIAN Family Medicine
DX: D47.2 Monoclonal gammopathy (principal)
CPT/HCPCS: 80053; 85025

== ENCOUNTER 2023-10-19 11:05 | Inpatient (IN) | payer OTHER, SELFPAY ==
[2023-10-19 08:37] VITALS: BP 121/77
[2023-10-19 09:00] VITALS: BP 124/74
[2023-10-19 09:02] VITALS: BMI 20.8
[2023-10-19] MEDS: NSS 1000 IV ×2 (09:30→16:30)
[2023-10-19 09:34] LABS: % Basophils 0.2 % (0-2); % Eosinophils 0.1 % (0-6); % Immature Granulocytes 0.7 % (0-0.5); Absolute Immature Granulocytes 0.1 10^3/uL (0-0.05); Absolute Lymphocytes 0.3 10^3/uL (1.2-3.4); Absolute Monocytes 0.6 10^3/uL (0.1-0.6); Absolute Neutrophils 9.5 10^3/uL (1.4-6.5); Hematocrit 31.4 % (39.0-52.0); Hemoglobin 10.6 g/dL (13.0-18.0); Mean Corp Hgb Conc. 33.8 g/dL (33.0-37.0); Mean Corpuscular Volume 97.8 fL (80.0-94.0); Nucleated Red Blood Cells % 0.4 % (-); Platelet Count 308 10^3/uL (130-400); Red Blood Cell Count 3.21 10^6/uL (4.70-6.10); Red Cell Dist. Width 14.6 % (11.5-14.5); White Blood Cell Count 10.5 10^3/uL (4.8-10.8)
--- NOTE | 2023-10-19 09:41 | ED.GENMED ---
History of Present Illness
General
Chief Complaint: Swallowing Problem
Source: patient, spouse and family
Exam Limitations: none
Time Seen by Provider: 10/19/23 08:46
Nursing documentation reviewed up to this point in time: agreed with
Travel History
Have you had any contact with someone who has COVID-19?: No
Do you have any symptoms of coronavirus? Fever > 100 degrees, chills, cough, shortness of breath, sore throat, loss of taste or smell, muscle aches, or headache?: No
History of Present Illness
History of Present Illness:
73-year-old male with Georges history of hypertension, previous stroke presenting to the emergency department today with concerns of difficulty swallowing and symptoms of dehydration over the past few days. Patient has a history of metastatic
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 Considering his difficulty swallowing he had imaging showing PASH esophagus with air-fluid level. They are concerned that has become dehydrated and did have a bump in his creatinine
level which was 1.9 compared to 0.9. He has been increasingly feeling weak and tired over the past few weeks. He denies any specific chest pain shortness of breath fevers vomiting abdominal urinary symptoms.
Past History
Past History
ED Past Medical History: HTN
ED Past Surgical History: None
Social History
Tobacco: Non-smoker
Alcohol: None
Personal:
Living: alone
Employment: Employed ([employer])
Family History
Family History: Hypertension
Review of Systems
Review of Systems
Allergies reviewed?: Yes
All Other Systems: ROS reviewed and negative except as documented in HPI and ROS
Phy Exam
Physical Exam
Physical Exam:
GENERAL: Alert , in no apparent distress
EYE: pupils equal and reactive
NECK: Supple, no significant adenopathy.
ENT: o/p clr, mmm.
CARDIAC: Regular rate and rhythm .
LUNGS: Clear breath sounds bilaterally, no acute respiratory distress, no wheezes/rales/rhonchi
ABDOMEN: Soft, without focal tenderness, no r/g, no cvat
NEUROLOGICAL: Alert and oriented, no focal neuro deficits
SKIN: Warm and dry, skin intact.
MUSCULOSKELETAL: No edema, well perfused.
PSYCH: Normal and appropriate interaction.
Course
Orders/Labs/Results
Orders:
Orders
10/19/23 09:00
EKG [Electrocardiogram (*1)] Urgent
Reason for Study: Fatigue / Weakness
EKG- Treatment ONCE
Urinalysis Reflex To Culture Urgent
0.9% Sodium Chloride 1000 ml [Nss] 1,000 ml IV BOLUS
10/19/23 09:10
Complete Blood Count/With Diff Urgent
Comprehensive Metabolic Panel Urgent
TSH Reflex To Free T4 Urgent
Comment: ADD ON
10/19/23 09:24
Add On- LAB Urgent
Tests Added?: tsh free t4
Abnormal Lab Results
10/19/23
09:10
RBC 3.21 L 10^6/uL
(4.70-6.10)
Hgb 10.6 L g/dL
(13.0-18.0)
Hct 31.4 L %
(39.0-52.0)
MCV 97.8 H fL
(80.0-94.0)
MCH 33.0 H pg
(27.0-31.0)
RDW 14.6 H %
(11.5-14.5)
MPV 11.0 H fL
(7.4-10.4)
Abs Immat Gran (auto) 0.1 H 10^3/uL
(0-0.05)
Absolute Neuts (auto) 9.5 H 10^3/uL
(1.4-6.5)
Absolute Lymphs (auto) 0.3 L 10^3/uL
(1.2-3.4)
Immature Gran % 0.7 H %
(0-0.5)
Neutrophils % 90.0 H %
(42.2-75.2)
Lymphocytes % 3.0 L %
(20.5-51.1)
Potassium 5.4 H mmol/L
(3.5-5.1)
Carbon Dioxide 19 L mmol/L
(22-30)
BUN 65 H mg/dl
(9-20)
Creatinine 3.0 H mg/dL
(0.7-1.3)
Glucose 120 H mg/dl
(70-99)
Calcium 7.0 L mg/dl
(8.4-10.2)
ALT 204 H U/L
(0-50)
Alkaline Phosphatase 311 H U/L
(38-126)
Total Protein 6.1 L g/dl
(6.3-8.2)
Albumin 3.0 L g/dl
(3.5-5.0)
10/19/23 09:10
10/19/23 09:10
Vital Signs
Initial and Last Documented VS:
Initial Vital Signs
Temp Pulse Resp BP Pulse Ox
97.9 F 82 18 121/77 97
10/19/23 08:37 10/19/23 08:37 10/19/23 08:37 10/19/23 08:37 10/19/23 08:37
Last Documented Vital Signs
Temp Pulse Resp BP Pulse Ox
97.9 F 82 18 121/77 97
10/19/23 08:37 10/19/23 08:37 10/19/23 08:37 10/19/23 08:37 10/19/23 08:37
MDM/Problems Addressed
MDM/Problems Addressed:
33-year-old male presenting to the emergency department today with concerns of dehydration. Does have a history of metastatic cancer has had significant trouble swallowing recently. Found to have a patulous esophagus on CT scan recently. Here
labs showing significant elevation in creatinine to 3.0 and BUN of 65 representing likely dehydration and NANDO. Patient was started on fluids and will be admitted for further treatment and monitoring.
*Critical Care Note
Total Time (30-74mins, 75-104mins- exclusive of procedures): Not Applicable
ED Attending Note
-
Portions of this chart may have been created with voice recognition software.� Occasional wrong word or��sound alike� substitutions may have occurred due to the inherent limitations of voice recognition software.
Discharge Plan
Departure
Patient Disposition: Admit
Date of Disposition: 10/19/23
Time of Disposition: 10:06
Admit to: Med/Surg
Admit to doctor: Desiree
Presentation/result/management discussed w/ accepting MD/DO: Hospitalist
Patient with high blood pressure during this ER visit?: No
Condition: Good
Covid-19: Not Applicable
Discharge Problem:
NANDO (acute kidney injury), Dehydration
Prescriptions:
No Action
hydralazine 50 mg Tablet
50 mg PO BID
bupropion HCl 150 mg Tablet Sustained-Release 12 Hr
150 mg PO DAILY
atenolol 25 mg Tablet
25 mg PO HS
tamsulosin 0.4 mg Capsule
0.4 mg PO DAILY
omeprazole 20 mg Capsule,Delayed Release(Dr/Ec)
20 mg PO DAILY
allopurinol 300 mg Tablet
300 mg PO DAILY
eplerenone 50 mg Tablet
100 mg PO BID
oxycodone 5 mg tablet
5 mg PO Q8H PRN (Reason: Pain) Qty: 12 0RF
Referrals:
Meño Jimenez DO [Family Provider] -
Interventions
Interventions:
*Risk Screen - Suicide Last Done: 10/19/23 08:37
*General Assessment Last Done: 10/19/23 08:37
*Neglect/Abuse Screening Last Done: 10/19/23 08:37
ED- Fall Risk Assessment Last Done: 10/19/23 08:55
*ED COVID-19 Vaccine History Last Done: 10/19/23 08:55
SK-Wmuijf-Ilgtmlcbbx Assessment Last Done: 10/19/23 08:55
ED- Pulmonary Assessment Last Done: 10/19/23 08:55
ED- Neurological Assessment Last Done: 10/19/23 08:55
Discharge Date and Time
Print Language: [id number]
[2023-10-19 09:47] LABS: ALT (SGPT) 204 U/L (0-50); Alkaline Phosphatase 311 U/L (38-126); Blood Urea Nitrogen 65 mg/dl (9-20); Carbon Dioxide 19 mmol/L (22-30); Chloride 106 mmol/L (98-107); Estimated Creatinine Clearance 20 ml/min; Glucose 120 mg/dl (70-99); Potassium 5.4 mmol/L (3.5-5.1); Sodium 137 mmol/L (135-145); Total Bilirubin 1.3 mg/dl (0.2-1.3); Total Protein 6.1 g/dl (6.3-8.2)
[2023-10-19 10:10] LABS: AST (SGOT) 1306 U/L (17-59)
[2023-10-19 10:58] LABS: TSH Reflex To Free T4 2.35 uIU/ml (0.47-4.68)
--- NOTE | 2023-10-19 11:36 | CON.GI ---
Addendum entered and electronically signed by Nate Johnston MD 10/19/23 15:29:
I saw and examined the patient.
The FINISH PATCHER or PA's note was reviewed and I agree with the note.
Comment: 73-year-old male past medical history as below including prostate cancer status postradiation, prior neck resection with parathyroid adenoma found in the fall to have weight loss and early satiety a CT scan showed liver mets and a
distention of stomach wall and nodule or thickening of the duodenum and MRI with hepatic and osseous mets and adrenal adenoma. He underwent an endoscopic with Dr. Brown which was overall normal March 2023. Liver biopsy confirmed
neuroendocrine tumor with large cell features no known primary. He follows with Dr. House at [place] who we discussed the case with. He has been undergoing chemotherapy and I discussion with his oncologist it is unclear what is reversible at
this point. She did discuss with him hospice and supportive care. He had a CTA of the chest which showed a patulous esophagus with acute fluid levels. He is not able to eat or drink and does have dysphagia and coughs while he eats. He was also
found to have a rising creatinine. He has a very high AST unclear if this is from his liver mets.
Speech pathology has seen him and recommended a video swallow evaluation. After the video swallow, we will place a Dobhoff tomorrow likely and see how he tolerates feeds as well as correct his electrolytes and improve his NANDO. Feeds should be
started slow as he is high risk of refeeding syndrome. He may benefit from a PEG tube early next week. We did discuss this would not prolong life but would simply be a means of nutrition. Risks of PEG was discussed with patient including but not
limited to bleeding, infection, perforation, buried bumper.
Original Note:
Consultation
-
Date/Time Consultation Requested: 10/19/23 1045
Date/Time Consultation Performed: 10/19/23 1135
Requesting Provider: Ambar Costa MD
Performing Provider: CLEM Covarrubias, Ingrid Johnston MD
Reason for Consultation: severe dysphagia
Medical History
Chief Complaint / HPI
Chief Complaint: unable to eat, wt loss
History of Present Illness:
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 After completd he noted concern for wt loss and early satiety. Ct at that time with
concern for liver mets and underdistention of wall of stomach and nodular wall thickening of duodenum and MRI with hepatic and osseous mets and adrenal adenoma. He proceeded to EGD with gastric lymphangioectasia stomach papule with neg bx. then
liver biopsy with noted concern for neuroendocrine tumor with large cell features. He had pet scan in May with widespread osteolytic mets, with extensive hepatic mets and uptake in rectosigmoid junction possible polyp. he states he then
started with treatment with oncology and now on 3rd course with start of Opdivo and Yervoy this week. He relates he has been living on ensure for several months but now unable to eval swallow ensure with 50 lbs wt loss since last fall with
increased weakness. Pt also noted with creat of 3, bili 1.3, AST 1306, ALT 204, alk phos 311 on admission.
He admit to severe dysphagia with liquid and solids, He denies odynophagia, GERD, nausea, vomiting except occasional regurgitation of ingested liquids, hematemesis, abdominal pain, blood or black in stools. He does have occasional loose
stools.
Past Medical History
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
Past Surgical History: Other (resection of neck parathyroid adenoma, liver biopsy, hernia repair)
Social History
Tobacco: Non-Smoker
Alcohol: Former (social 1 drink daily)
Drug: None
Personal:
Living: Alone (with recent ex for assist )
Employment: Retired
Family History
Family History: Other (father/brother, pat GF prostate CA, GM stomach CA, )
Allergies / Home Medications
Allergy/AdvReac Type Severity Reaction Status Date / Time
JAIDA Inhibitors Allergy Tongue Verified 10/19/23 08:36
Swelling
lisinopril Allergy Tongue Verified 10/19/23 08:36
Swelling
�Medication �Instructions �Recorded
hydralazine 50 mg tablet 50 mg PO BID 04/05/14
allopurinol 300 mg tablet 300 mg PO HS 08/18/22
atenolol 25 mg tablet 25 mg PO DAILY 08/18/22
eplerenone 50 mg tablet 100 mg PO BID 08/18/22
omeprazole 20 mg capsule,delayed 20 mg PO DAILY 08/18/22
release
tamsulosin 0.4 mg capsule 0.4 mg PO HS 08/18/22
bupropion HCl 150 mg 24 hr tablet, 150 mg PO DAILY 10/19/23
extended release
ipilimumab 50 mg/10 mL (5 mg/mL) 70 mg IV Q3W 10/19/23
intravenous solution (Yervoy)
nivolumab 100 mg/10 mL intravenous 209.4 mg IV Q3W 10/19/23
solution (Opdivo)
oxycodone 5 mg tablet 5 mg PO Q8HPRN PRN severe pain 10/19/23
Review of Systems
-
History Source: Patient
Constitutional: Reports Weight Loss (50 lbs) and Other (difficulty swallowing with inability to eat)
EENT: Reports No Symptoms
Respiratory: Reports Cough (occasional with eating )
Cardiac: Reports No Symptoms
Abdomen/GI: Reports Diarrhea and Other (dysphagia )
: Reports No Symptoms
Musculoskeletal: Reports No Symptoms
Skin: Reports No Symptoms
Neurological: Reports Weakness
Endocrine: Reports No Symptoms
Hematologic/Lymphatic: Reports No Symptoms
Vital Signs
Temp Pulse Resp BP Pulse Ox
97.9 F 74 16 124/74 96
10/19/23 08:37 10/19/23 09:00 10/19/23 09:00 10/19/23 09:00 10/19/23 09:00
Physical Exam
Exam
General: No Apparent Distress and Other (weak appearing but awakens to voice and conversant )
HEENT: Normocephalic and Other (some palpable thyroid nodules )
Respiratory: Other (decreased )
Cardiac: Regular Rhythm
GI: Soft and Non Distended
Musculoskeletal: No Clubbing and No Cyanosis
Skin: Warm and Dry
Neuro: Awake, Alert and AO x 3
Psych: Calm
Results
WBC 10.5 10^3/uL (4.8-10.8) 10/19/23 09:10
Hgb 10.6 g/dL (13.0-18.0) L 10/19/23 09:10
Hct 31.4 % (39.0-52.0) L 10/19/23 09:10
MCV 97.8 fL (80.0-94.0) H 10/19/23 09:10
Plt Count 308 10^3/uL (130-400) 10/19/23 09:10
Absolute Neuts (auto) 9.5 10^3/uL (1.4-6.5) H 10/19/23 09:10
Sodium 137 mmol/L (135-145) 10/19/23 09:10
Potassium 5.4 mmol/L (3.5-5.1) H 10/19/23 09:10
Chloride 106 mmol/L (98-107) 10/19/23 09:10
Carbon Dioxide 19 mmol/L (22-30) L 10/19/23 09:10
BUN 65 mg/dl (9-20) H 10/19/23 09:10
Creatinine 3.0 mg/dL (0.7-1.3) H 10/19/23 09:10
Calcium 7.0 mg/dl (8.4-10.2) L 10/19/23 09:10
Total Bilirubin 1.3 mg/dl (0.2-1.3) 10/19/23 09:10
AST 1306 U/L (17-59) H* 10/19/23 09:10
ALT 204 U/L (0-50) H 10/19/23 09:10
Alkaline Phosphatase 311 U/L (38-126) H 10/19/23 09:10
Diagnostic Image Results:
10/16/23 CT Abd/Pel (IV only)-DH only
1. Progression of hepatic metastases, with progressive severe enlargement of the liver. Liver measures up to 31 cm in greatest dimension.
2. Geographic area of hypoenhancement within the inferior portion of the liver, suggestive of hepatic infarction.
3. The central portal vein demonstrates no thrombus, however the peripheral portal veins are not well evaluated.
4. Small amount of perihepatic free fluid, and free fluid within the pelvis.
5. Diffuse osseous metastatic disease, with progression compared to prior PET/CT dated 08/11/2023.
6. Tiny right pleural effusion, with associated right basilar subsegmental atelectasis.
7. Small pulmonary nodules at the lung bases, measuring up to 3 mm in diameter, grossly unchanged compared to prior study.
10/13/23 CT Chest Pe Study
1. No CT evidence for pulmonary embolism.
2. Small right pleural effusion with small amount of adjacent airspace consolidation/atelectasis.
3. Multiple new versus enlarging nodules along both major fissures and the right minor fissure. Several small nodules seen within the posterior left lower lobe and lingula. Findings are nonspecific but suggestive of metastatic disease.
4. Hepatomegaly with redemonstration of numerous hepatic metastases.
5. Extensive osteoblastic metastases within the axial and appendicular skeleton.
6. Patulous esophagus with air-fluid level seen within the mid segment.
08/11/23 PT Pet Wbi W/CT Skull-thigh
1).There are extensive lytic osseous metastasis throughout the regional osseous system, improved but unresolved compared with the prior study.
2).There is hepatomegaly (26 cm) with greater than 20 FDG avid hepatic which are not significantly changed when compared with the prior study
2/9/24 MRI brain
No acute intracranial abnormality noted. Chronic senescent changes as described.
No MR evidence for intracranial metastases.
05/2023 PET
Extensive widespread osteolytic metastatic disease.
Extensive hepatic metastatic disease.
No hypermetabolic adenopathy in the chest, abdomen, or pelvis.
Focus of FDG activity along the left lateral margin of the rectosigmoid junction. This may be physiologic. The possibility of small polyps cannot be entirely excluded. Recommend clinical correlation.
Prior GI Procedures:
EGD: 2022 gastric lymphangiectasia stomach papule with neg bx.
Colonoscopy: 2006 minissale,- HP and TA cecal/rectal polyps, diverticulosis, erythema with neg bx for microscopic colitis
Assessment / Plan
-
Pt is a 73yo with hx HTN, CVA/ TIA 5-6 years ago, gout, sleep apnea, prostate CA with radiation, prior neck resection of parathyroid adenoma last fall. After completed he noted concern for wt loss and early satiety. Ct at that time with concern
for liver mets and underdistention of wall of stomach and nodular wall thickening of duodenum and MRI with hepatic and osseous mets and adrenal adenoma. He proceeded to EGD with gastric lymphangioectasia stomach papule with neg bx. then liver
biopsy with noted concern for neuroendocrine tumor with large cell features. He had pet scan in May with widespread osteolytic mets, with extensive hepatic mets and uptake in rectosigmoid junction possible polyp. he states he then started with
treatment with oncology and now on 3rd course with start of Opdivo and Yervoy this week. He relates he has been living on ensure for several months but now unable to eval swallow ensure with 50 lbs wt loss since last fall with
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
-dysphagia( likely oropharyngeal) with inability to eat
-wt loss 50 + lbs
-prior parathyroid neck resection of Adenoma
-elevated LFT's with marked elevated AST
-Acute on chronic CKD
-pet 05/2023 with uptake rectosigmoid, possible small polyp no seen on follow up
-hypoalbuminemia
other med problems:
-prostate CA with radiation
-colon polyp last screening 2006
-HTN
-CVA/TIA
-gout
-sleep apnea
PLAN:
etiology of underlying ongoing dysphagia unclear -- pt with ongoing dysphagia to solids for months, ? related to mets, underlying neurologic issues vs other
s/p speech eval plan for VSE for oropharyngeal dysphagia in am
pending results consider DHT 10/19. Will need to correct electrolytes and monitor tube feed tolerance over weekend and consider peg tube next week
will need close follow mag, phos, K with concern for refeeding on start of tube feed --add phos and mag for baseline
discussed with patient risk and benefits of considering peg and reviewed with primary oncology Dr. House --pt is not ready for hospice or wishes to proceed with further treatment
support given as advancing disease
trend LFT's ? etiology of marked elevated AST
will follow
-
-
-
Thank you for consultation and allowing me to participate in the patient's care. Please call the client relation specialist GI physician during the after hours with any questions or concerns.
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
[2023-10-19 12:32] VITALS: BMI 20.8
[2023-10-19 12:33] VITALS: BP 128/85
[2023-10-19] MEDS: NSS (PRESERVATIVE FREE) 10 ML IV (13:14)
[2023-10-19] MEDS: PROTONIX IV 40 MG IV (13:16)
--- NOTE | 2023-10-19 13:40 | PTOTSP ---
SPEECH THERAPY SWALLOW EVALUATION:
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 Patient endorsed significant dysphagia
symptoms including 50lb weight loss overt several months, difficulty swallowing solids (reported is unable to swallow solids or whole pills at this time), coughing with liquids, globus sensation in throat. Patient is at high risk for aspiration and
related complications. Recommend Videofluoroscopic Swallowing Study to further assess swallow physiology. Recommend patient to continue NPO except for ARHP of unlimited small single sips of water and ice chips with aspiration precautions (upright
positioning, small single sips) in place until VSE. Non-oral medications due to patient report of unable to swallow whole pills. Aggressive oral care QID and increased mobility as tolerated to reduce the risk for nosocomial infection. Education
provided to patient regarding aspiration risks/precautions, oral care, and VSE procedure. All questions answered. Speech therapy to follow with further recommendations following VSE.
RECOMMEND:
1) Videofluoroscopic Swallowing Study
2) NPO
3) ARHP of unlimited small single sips of water and ice chips
4) Aggressive oral care QID and increased mobility as tolerated
5) Aspiration precautions: upright positioning, small single sips
6) Speech therapy to follow
[2023-10-19 15:00] VITALS: BP 118/83
[2023-10-19 15:46] VITALS: BMI 20.8
[2023-10-19 16:04] LABS: Magnesium 1.4 mg/dl (1.6-2.3); Phosphorus 5.7 mg/dl (2.5-4.5)
[2023-10-19] MEDS: DILAUDID 0.5 MG IV ×2 (16:07→22:37)
[2023-10-19] MEDS: HEPARIN 5000 UNITS SC (19:40)
[2023-10-19 22:37] LABS: Urine Albumin 1+ (Neg - Trace); Urine Bilirubin 1+ (Negative); Urine Character Clear (Clear); Urine Color Yellow; Urine Glucose Negative (Negative); Urine Ketone Trace (Negative); Urine Leukocyte Trace (Negative); Urine Nitrite Negative (Negative); Urine Occult Blood 1+ (Negative); Urine Specific Gravity 1.025 (<1.030); Urine Urobilinogen 1+ (Neg - 1+)
[2023-10-19 22:48] LABS: Urine Squamous Cell 0-2 /LPF (Few)
[2023-10-19 22:55] LABS: Urine Calcium Oxalate Crystals Present
[2023-10-19 22:56] LABS: Urine Bacteria Many (Negative); Urine White Cell 0-2 /HPF (0-5)
[2023-10-19 23:35] VITALS: BP 112/75
[2023-10-20] MEDS: NSS 1000 IV (03:07)
--- NOTE | 2023-10-20 05:26 | W.PN.HOSP.TC ---
Addendum entered and electronically signed by Kale Ramon MD 10/20/23 22:43:
Severe Protein Calorie Malnutrition
Original Note:
Today's Communication/Plan
-
Goals of care discussion
DHT as per GI
pain control
Bicarb gtt
Nephro eval
monitor renal function and urine output
Assessment / Plan
Assessment / Plan
Physical Exam
General: No Apparent Distress, Appears chronically ill
HEENT: NormoCephalic and Anicteric
Respiratory: Clear
Cardiac: S1/S2 and Regular Rhythm
GI: Soft, Distended, Severe hepatomegaly noted
Musculoskeletal: No Clubbing and No Cyanosis
Skin: Warm and Dry
Neuro: Awake, Alert and Oriented
Psych: Calm
HPI 73-year-old male with a past medical history of neuroendocrine tumor with metastases to the liver and bone, prostate cancer, TIA, hypertension, gout, and posttraumatic stress disorder presents with a 1 week history of HPI: 73-year-old male with
a past medical history of neuroendocrine tumor with metastases to the liver and bone, prostate cancer, TIA, hypertension, gout, and posttraumatic stress disorder presents with a 1 week history of worsening dysphagia, and inability to eat/drink.
Patient reports that food and liquids get stuck in the back of his throat. He had blood work done yesterday, which shows acute kidney injury. He does report feeling weak, and tired. He denies regurgitating food or liquids. He does report coughing
with trying to eat or drink. He has been unable to take his medications. No chest pain, shortness of breath, or palpitations. No fever.
#Severe dysphagia
Speech evaluation with VSE appreciated high risk for aspiration
GI eval appreciated DHT to be placed pending PEG, patient in agreement
-initial attempt DHT failed d/t discomfort right nare since improved with removal, plan to re-attempt DHT left nare as per GI in AM 10/20
-small single sips allowed for now as per GI and speech.
#Neuroendocrine tumor with metastases to the bone and liver
Follows with Dr. House
Oncology consult appreciated
#Acute kidney injury
#Metabolic Acidosis
#Persistent Hyperkalemia
#Oliquric
Hold eplerenone
Due to dehydration, continue IV fluids, trend creatinine
IVF NS converted to bicarb gtt with rate increased to 125 cc/h
nephro eval requiested
#Hypocalcemia
monitor and replete as necessary
#Transaminitis
#Hepatomegaly
Due to liver metastases
improving
#Chronic normocytic anemia
Trend hemoglobin
#History of benign essential hypertension
Holding eplerenone, hydralazine, atenolol d/t dysphagia (eplerenone also on hold for NANDO as above)
IV hydralazine prn, as not required so far
#Gastroesophageal reflux disease
PPI IV
#Posttraumatic stress disorder
Hold bupropion
DVT prophylaxis�subcu heparin
DNR confirmed by patient upon admission
dicussed with patient and his daughter Patrick at bedside
Total time spent to see the patient on the floor, examine the patient, review data and lab results, discuss treatment plan with patient, nursing staff around 50 minutes.
Anticipated Discharge: > 48 hours
Subjective/Interval History
-
Date of Service: October 20, 2023
No acute distress sitting up comfortably in bed. Patient eager to resume eating but aware risk of aspiration. Agreeable with plan for DHT and eventual PEG.
Objective Data
-
Labs:
Laboratory Results
10/20/23
04:45
WBC Pending
Hgb Pending
Hct Pending
Plt Count Pending
Sodium Pending
Potassium Pending
Chloride Pending
Carbon Dioxide Pending
BUN Pending
Creatinine Pending
Glucose Pending
Calcium Pending
Total Bilirubin Pending
AST Pending
ALT Pending
Alkaline Phosphatase Pending
Vital Signs:
Vital Signs
Temp Pulse Resp BP Pulse Ox
99.4 F 84 17 112/75 96
10/19/23 23:35 10/19/23 23:35 10/19/23 23:35 10/19/23 23:35 10/19/23 23:35
I&O
10/18/23 10/19/23 10/20/23
06:59 06:59 06:59
Intake Total 120 / 120
Balance 120 / 120
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
[2023-10-20 07:00] VITALS: BP 142/89
[2023-10-20 07:01] LABS: Hematocrit 30.4 % (39.0-52.0); Hemoglobin 9.8 g/dL (13.0-18.0); Mean Corp Hgb Conc. 32.2 g/dL (33.0-37.0); Mean Corpuscular Hgb 33.2 pg (27.0-31.0); Mean Corpuscular Volume 103.1 fL (80.0-94.0); Mean Platelet Volume 11.9 fL (7.4-10.4); Platelet Count 275 10^3/uL (130-400); Red Blood Cell Count 2.95 10^6/uL (4.70-6.10); Red Cell Dist. Width 14.6 % (11.5-14.5); White Blood Cell Count 9.5 10^3/uL (4.8-10.8)
[2023-10-20 07:34] LABS: ALT (SGPT) 152 U/L (0-50); AST (SGOT) 645 U/L (17-59); Albumin 2.8 g/dl (3.5-5.0); Alkaline Phosphatase 265 U/L (38-126); Blood Urea Nitrogen 74 mg/dl (9-20); Calcium 6.3 mg/dl (8.4-10.2); Carbon Dioxide 14 mmol/L (22-30); Chloride 108 mmol/L (98-107); Estimated Creatinine Clearance 18 ml/min; Glucose 79 mg/dl (70-99); Magnesium 1.5 mg/dl (1.6-2.3); Phosphorus 7.2 mg/dl (2.5-4.5); Potassium 5.4 mmol/L (3.5-5.1); Sodium 140 mmol/L (135-145); Total Bilirubin 0.9 mg/dl (0.2-1.3); Total Protein 5.5 g/dl (6.3-8.2); eGFR 18.07
[2023-10-20 07:38] LABS: Vitamin D, 25-OH*** 25.4 ng/mL (30-80)
[2023-10-20] MEDS: HEPARIN 5000 UNITS SC ×2 (07:42→20:00)
[2023-10-20] MEDS: PROTONIX IV 40 MG IV (07:42)
[2023-10-20] MEDS: NSS (PRESERVATIVE FREE) 10 ML IV (07:43)
--- NOTE | 2023-10-20 09:05 | W.PN.GI.CBS2 ---
Today's Communication / Plan
-
Await VSE today
If aspiration, place DHT starting Jevity 1.5 at low rate 10cc/hr and advance only to 30cc/hr, given risk for refeeding
Follow electrolytes carefully
Cr is increasing, minimal urine output
Assessment / Plan
-
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 After completed he noted concern for wt loss and early satiety. Ct at that time with
concern for liver mets and underdistention of wall of stomach and nodular wall thickening of duodenum and MRI with hepatic and osseous mets and adrenal adenoma. He proceeded to EGD with gastric lymphangioectasia stomach papule with neg bx. then
liver biopsy with noted concern for neuroendocrine tumor with large cell features. He had pet scan in May with widespread osteolytic mets, with extensive hepatic mets and uptake in rectosigmoid junction possible polyp. he states he then
started with treatment with oncology and now on 3rd course with start of Opdivo and Yervoy this week. He relates he has been living on ensure for several months but now unable to eval swallow ensure with 50 lbs wt loss since last fall with
Impression:
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
-dysphagia (likely oropharyngeal) with inability to eat
-wt loss 50 + lbs
-prior parathyroid neck resection of Adenoma
-elevated LFT's with marked elevated AST
-Acute on chronic CKD
-pet 05/2023 with uptake rectosigmoid, possible small polyp no seen on follow up
-hypoalbuminemia
other med problems:
-prostate CA with radiation
-colon polyp last screening 2006
-HTN
-CVA/TIA
-gout
-sleep apnea
Subjective
Subjective
Date of Service: October 20, 2023
C/O dry mouth. Denies abd pain
Objective
Data Reviewed
Laboratory Data:
Laboratory Results
10/20/23 04:45
10/20/23 04:45
Laboratory Results
Phosphorus 7.2 mg/dl (2.5-4.5) H 10/20/23 04:45
Magnesium 1.5 mg/dl (1.6-2.3) L 10/20/23 04:45
Total Bilirubin 0.9 mg/dl (0.2-1.3) 10/20/23 04:45
AST 645 U/L (17-59) H* 10/20/23 04:45
ALT 152 U/L (0-50) H 10/20/23 04:45
Alkaline Phosphatase 265 U/L (38-126) H 10/20/23 04:45
Vital Signs and I&O:
Vital Signs
Temp Pulse Resp BP Pulse Ox
99.4 F 82 17 142/89 95
10/19/23 23:35 10/20/23 07:00 10/20/23 07:00 10/20/23 07:00 10/20/23 07:00
I&O
10/19/23 10/20/23 10/21/23
06:59 06:59 06:59
Intake Total 120 / 120
Output Total 100 / 100
Balance
Physical Exam
Physical Exam
GI: Soft, Non Distended and Non Tender
[2023-10-20] MEDS: MAGNESIUM SULFATE 100 IV (09:11)
[2023-10-20] MEDS: CALCIUM GLUCONATE 100 IV (09:25)
[2023-10-20] MEDS: SODIUM BICARBONATE 1150 MEQ IV ×2 (10:25→19:59)
--- NOTE | 2023-10-20 11:43 | PTOTSP ---
VIDEOFLUOROSCOPIC SWALLOWING STUDY:
Patient exhibits moderate oral and severe pharyngeal dysphagia. Silent aspiration was observed with thin liquids with consecutive sips from cup and mildly-thick liquid from consecutive sips cup, without a cough response. Moderate-severe pharyngeal
residue was noted with increasing viscosities, greatest with moderately-thick liquids, pudding, and regular solids, with intermittent trace silent aspiration of residue. Residue was noted coating base of tongue, posterior pharyngeal wall,
valleculae, and pyriform sinus. Epiglottic inversion was minimal to absent. Patient remains at high risk for aspiration and related complications. Recommendation for safest p.o. intake would be only for single small sips of thin liquids at this
time. Patient would be unlikely to maintain nutrition/hydration needs at this time with these recommendations, therefore patient may need temporary or long-term alternate means for nutrition/medication/hydration. Recommend non-oral medications at
this time. Etiology of dysphagia is likely chronic related to metastatic cancer, and also potentially related to parathyroid/hypercalcemia given patient with history of parathyroid adenoma. Consider ENT/Endocrinology consult as appropriate. Speech
therapy to follow as appropriate. Recommend aspiration precautions including: Upright positioning; Small single sips via cup only; intermittent dry swallows; monitor CXR, labs, temperature; Aggressive oral care QID and increased mobility as able to
reduce risk for nosocomial infection; D/c oral diet if any signs of aspiration or a decline in respiratory status.
RECOMMEND:
1) Thin liquids via single small sips
2) non-oral medications
3) Aspiration precautions: Upright positioning; Small single sips via cup only; intermittent dry swallows; monitor CXR, labs, temperature; Aggressive oral care QID and increased mobility as able to reduce risk for nosocomial infection; D/c oral diet
if any signs of aspiration or a decline in respiratory status
4) Speech Therapy to follow
5) Consider short-term or long-term non-oral medication/hydration/nutrition
6) Consider ENT/Endocrinology consult as appropriate
[2023-10-20 12:07] VITALS: BP 119/76; BP 125/85; PULSE 79
[2023-10-20 12:17] VITALS: BP 119/76; BP 125/85; PULSE 79; O2SAT 97
--- NOTE | 2023-10-20 12:17 | W.PN.UPDATE ---
Addendum entered and electronically signed by CLEM Harrell 10/20/23 13:50:
pt initially tolerating DHT now with increase nasal pain without any difficulty with initial placement. Wire removed without change. DHT d/c with improvement. Hold abd X ray and consider replacement in left nare in AM.
Original Note:
Update Note
Progress Note Update
reviewed with speech therapy agree with need for DHT and eventual peg. ok for some sips for now. DHT placed right nare without difficulty at 65cm. Confirmed with air insufflation. Will check X ray to confirm placement. Ex at bedside updated.
--- NOTE | 2023-10-20 12:57 | PN.CDI ---
CDI
- -
CDI:
Physician Documentation Request
Admit Date: 10/19/23 11:05
Dear Doctor Yenny,
Please review the following and provide your response in the progress notes.
Clinical Indicators:
Barrel Cutter, 10/18
CBW: 153 lbs BMI 20.8 underweight > 63 yo (10/18).
#...Pt reports was 205 lbs in January and has been loosing weight
#...due to difficutly swallowing as well as taste changes.
#Weight loss reflective of 52 lb (25%) weight loss in 8 months significant.
#...visulize protrusion of clavical, apparent ribs, orbital area sunken in,
#...temporal wasting and quad muscle wasting.
#...weight loss of > 20% in 1 year, < 75% estimated needs > 1 month and
#...observed muscle and fat wasting pt meets
#...AND/ASPEN criteria for severe protein calorie malnutrition of chronic illness.
Please provide in the progress notes, additional specificity regarding the severity of the malnutrition:
Severe Protein Calorie Malnutrition
Other (please specify)
[place] Criteria (ACP Hospitalist 2017)
2 or more criteria must be present for either
non severe or severe malnutrition
Note that the criteria differs related to the
presence of an acute or chronic illness
Chronic Illness
Energy Intake Non Severe: <75% for >1 month
Severe: <75% for >1 month
Weight Loss Non Severe: 5% over 1 month
7.5% over 3 months
10% over 6 months
20% over 1 year
Severe: >5% over 1 month
>7.5% over 3 months
>10% over 6 months
>20% over 1 year
Body Fat Non Severe: Mild Loss
Severe: Severe Loss
Muscle Mass Non Severe: Mild Loss
Severe: Severe Loss
Use of terms such as suspected, likely, concern for, or probable (associated with a specific diagnosis that is being evaluated, monitored, or treated as if it exists) are acceptable and can be coded in the inpatient setting, when documented at the
time of discharge.
Thank you,
Maryana Urbina RN BSN CCDS
CDI Specialist
please contact via tiger text
Please use your independent medical judgment in providing your response.
[2023-10-20 15:00] VITALS: BP 123/85
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
[2023-10-20 16:12] LABS: Lactic Acid 1.6 mmol/L (0.7-2.0)
[2023-10-20 16:30] LABS: B-Hydroxybutyrate 2.58 mmol/L (0.02-0.27)
[2023-10-20 23:34] VITALS: BP 123/86
[2023-10-21] MEDS: SODIUM BICARBONATE 1150 MEQ IV ×2 (02:49→16:27)
[2023-10-21] MEDS: DILAUDID 0.5 MG IV ×3 (03:37→15:10)
[2023-10-21 06:45] LABS: Hematocrit 28.1 % (39.0-52.0); Hemoglobin 9.5 g/dL (13.0-18.0); Mean Corp Hgb Conc. 33.8 g/dL (33.0-37.0); Mean Corpuscular Hgb 33.2 pg (27.0-31.0); Mean Corpuscular Volume 98.3 fL (80.0-94.0); Mean Platelet Volume 10.7 fL (7.4-10.4); Platelet Count 293 10^3/uL (130-400); Red Blood Cell Count 2.86 10^6/uL (4.70-6.10); Red Cell Dist. Width 14.5 % (11.5-14.5); White Blood Cell Count 9.4 10^3/uL (4.8-10.8)
[2023-10-21 07:11] LABS: ALT (SGPT) 113 U/L (0-50); AST (SGOT) 421 U/L (17-59); Albumin 2.6 g/dl (3.5-5.0); Alkaline Phosphatase 260 U/L (38-126); Blood Urea Nitrogen 80 mg/dl (9-20); Calcium 6.5 mg/dl (8.4-10.2); Carbon Dioxide 18 mmol/L (22-30); Chloride 101 mmol/L (98-107); Estimated Creatinine Clearance 18 ml/min; Glucose 81 mg/dl (70-99); Magnesium 2.1 mg/dl (1.6-2.3); Phosphorus 6.4 mg/dl (2.5-4.5); Potassium 4.6 mmol/L (3.5-5.1); Sodium 135 mmol/L (135-145); Total Bilirubin 0.9 mg/dl (0.2-1.3); Total Protein 5.4 g/dl (6.3-8.2); eGFR 18.07
[2023-10-21 07:16] VITALS: BP 148/100
[2023-10-21] MEDS: PROTONIX IV 40 MG IV (07:27)
[2023-10-21] MEDS: HEPARIN 5000 UNITS SC ×2 (07:27→21:04)
[2023-10-21] MEDS: NSS (PRESERVATIVE FREE) 10 ML IV (07:27)
[2023-10-21] MEDS: CALCIUM GLUCONATE 100 IV (08:49)
--- NOTE | 2023-10-21 08:50 | W.PN.GI.CBS2 ---
Today's Communication / Plan
-
Tolerated DHT placement into L nares
Check Xray to confirm position
If OK, start Jevity 1.5 at 10cc/hr and increase to goal rate 30cc/hr
Watch electrolytes given risk for refeeding syndrome
Mg 2.1, phos 6.4 (H), calcium 6.5 (low, but albumin 2.6)
Assessment / Plan
-
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 After completed he noted concern for wt loss and early satiety. Ct at that time with
concern for liver mets and underdistention of wall of stomach and nodular wall thickening of duodenum and MRI with hepatic and osseous mets and adrenal adenoma. He proceeded to EGD with gastric lymphangioectasia stomach papule with neg bx. then
liver biopsy with noted concern for neuroendocrine tumor with large cell features. He had pet scan in May with widespread osteolytic mets, with extensive hepatic mets and uptake in rectosigmoid junction possible polyp. he states he then
started with treatment with oncology and now on 3rd course with start of Opdivo and Yervoy this week. He relates he has been living on ensure for several months but now unable to eval swallow ensure with 50 lbs wt loss since last fall with
10/19 VSE- There was aspiration with thin liquid by cup with no spontaneous cough, and deep penetration with nectar consistency by cough. Aspiration was noted on residual.
Impression:
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
-dysphagia (likely oropharyngeal) with inability to eat
-wt loss 50 + lbs
-prior parathyroid neck resection of Adenoma
-elevated LFT's with marked elevated AST
-Acute on chronic CKD
-pet 05/2023 with uptake rectosigmoid, possible small polyp no seen on follow up
-hypoalbuminemia
other med problems:
-prostate CA with radiation
-colon polyp last screening 2006
-HTN
-CVA/TIA
-gout
-sleep apnea
Subjective
Subjective
Date of Service: October 21, 2023
No complaints this am. Nose feels better after pulling out DHT yesterday.
Objective
Data Reviewed
Laboratory Data:
Laboratory Results
10/21/23 06:12
10/21/23 06:12
Laboratory Results
Phosphorus 6.4 mg/dl (2.5-4.5) H 10/21/23 06:12
Magnesium 2.1 mg/dl (1.6-2.3) 10/21/23 06:12
Total Bilirubin 0.9 mg/dl (0.2-1.3) 10/21/23 06:12
AST 421 U/L (17-59) H 10/21/23 06:12
ALT 113 U/L (0-50) H 10/21/23 06:12
Alkaline Phosphatase 260 U/L (38-126) H 10/21/23 06:12
Vital Signs and I&O:
Vital Signs
Temp Pulse Resp BP Pulse Ox
97.7 F 85 16 148/100 96
10/21/23 07:16 10/21/23 07:16 10/21/23 07:16 10/21/23 07:16 10/21/23 07:16
I&O
10/20/23 10/21/23 10/22/23
06:59 06:59 06:59
Intake Total 120 / 120 2700 / 2700
Output Total 100 / 100 250 / 250
Balance 20 20 2450 / 2450
Physical Exam
Physical Exam
GI: Soft, Non Distended and Non Tender
--- NOTE | 2023-10-21 08:59 | W.PN.HOSP.TC ---
Today's Communication/Plan
-
see bold
Assessment / Plan
Assessment / Plan
HPI 73-year-old male with a past medical history of neuroendocrine tumor with metastases to the liver and bone, prostate cancer, TIA, hypertension, gout, and posttraumatic stress disorder presents with a 1 week history of HPI: 73-year-old male with
a past medical history of neuroendocrine tumor with metastases to the liver and bone, prostate cancer, TIA, hypertension, gout, and posttraumatic stress disorder presents with a 1 week history of worsening dysphagia, and inability to eat/drink.
Patient reports that food and liquids get stuck in the back of his throat. He had blood work done yesterday, which shows acute kidney injury. He does report feeling weak, and tired. He denies regurgitating food or liquids. He does report coughing
with trying to eat or drink. He has been unable to take his medications. No chest pain, shortness of breath, or palpitations. No fever.
#Severe dysphagia
Speech evaluation with VSE appreciated high risk for aspiration
GI eval appreciated DHT to be placed pending PEG, patient in agreement
S/p DHT left nare by GI 10/20, started on tube feeds, currently tolerating
Monitor for refeeding syndrome
#Neuroendocrine tumor with metastases to the bone and liver
Follows with Dr. House. Oncology consult appreciated.
Patient understands he is dying, but wishes to have more time so he can say goodbye to his family
He is declining hospice at this point
#Acute kidney injury
#Metabolic Acidosis
#Persistent Hyperkalemia
#Oliquric
Hold eplerenone
Appreciate nephrology input, continue sodium bicarb IV fluid
#Hypocalcemia
#Vitamin D deficiency
IV repletion as needed
#Transaminitis
#Hepatomegaly
Due to liver metastases
improving
#Chronic normocytic anemia
Trend hemoglobin
#History of benign essential hypertension
Holding eplerenone, hydralazine, atenolol d/t dysphagia (eplerenone also on hold for NANDO as above)
IV hydralazine prn, as not required so far
#Gastroesophageal reflux disease
PPI IV
#Posttraumatic stress disorder
Hold bupropion
DVT prophylaxis�subcu heparin
DNR confirmed by patient upon admission
Total time spent to see the patient on the floor, examine the patient, review data and lab results, discuss treatment plan with patient, nursing staff around 52 minutes.
Physical Exam
General: No Apparent Distress, Appears chronically ill
HEENT: NormoCephalic and Anicteric
Respiratory: Clear
Cardiac: S1/S2 and Regular Rhythm
GI: Soft, Distended, Severe hepatomegaly noted
Musculoskeletal: No Clubbing and No Cyanosis
Skin: Warm and Dry
Neuro: Awake, Alert and Oriented
Psych: Calm
Anticipated Discharge: > 48 hours
Subjective/Interval History
-
Date of Service: October 21, 2023
Patient denies chest pain, shortness of breath, or palpitations. No nausea, no vomiting. No fever.
Objective Data
-
Labs:
Laboratory Results
10/21/23
06:12
WBC 9.4
Hgb 9.5 L
Hct 28.1 L
Plt Count 293
Sodium 135
Potassium 4.6
Chloride 101
Carbon Dioxide 18 L
BUN 80 H
Creatinine 3.4 H
Glucose 81
Calcium 6.5 L*
Total Bilirubin 0.9
AST 421 H
ALT 113 H
Alkaline Phosphatase 260 H
Vital Signs:
Vital Signs
Temp Pulse Resp BP Pulse Ox
97.7 F 85 16 148/100 96
10/21/23 07:16 10/21/23 07:16 10/21/23 07:16 10/21/23 07:16 10/21/23 07:16
I&O
10/20/23 10/21/23 10/22/23
06:59 06:59 06:59
Intake Total 120 / 120 2700 / 2700
Output Total 100 / 100 250 / 250
Balance 2450 / 2450
--- NOTE | 2023-10-21 13:59 | W.PN.NEPH.PH ---
Today's Communication / Plan
-
- fluid repletion
- Caand Mg repletion
Assessment/Plan
-
Assessment:
Severe dysphagia
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
NANDO
Transaminitis
HyperK
Anemia
HTN
HAGMA
Plan:
NANDO
- likely pre-renal disease leading to ATN. bl Cr around 0.8-1, now elevated to 3.4
- UA with ketones and some blood
- CT A/P: no ureteral dilatation
- encourage replacement fluids as you are doing
HAGMA
- lactate not elevated
- beta hydroxybutyrate elevated
- likely in the setting of NANDO and BUN
C/f refeeding syndrome
- replete Mg and calcium aggressively
- phos elevated (in setting of NANDO, no need to replete)
- DHT in place
HTN
- normotensive currently
- CTM
- hold BP meds
-
-
Date of Service: October 21, 2023
CC / HPI / ROS
-
Chief Complaint:
NANDO
History of Present Illness:
Cr elevation to 3.4
hypocalcemia
Review of Systems:
patient feels fatigued
not ready for hospice
Labs
-
Labs:
WBC 9.4 10^3/uL (4.8-10.8) 10/21/23 06:12
RBC 2.86 10^6/uL (4.70-6.10) L 10/21/23 06:12
Hgb 9.5 g/dL (13.0-18.0) L 10/21/23 06:12
Hct 28.1 % (39.0-52.0) L 10/21/23 06:12
Plt Count 293 10^3/uL (130-400) 10/21/23 06:12
Sodium 135 mmol/L (135-145) 10/21/23 06:12
Potassium 4.6 mmol/L (3.5-5.1) 10/21/23 06:12
Chloride 101 mmol/L (98-107) 10/21/23 06:12
Carbon Dioxide 18 mmol/L (22-30) L 10/21/23 06:12
BUN 80 mg/dl (9-20) H 10/21/23 06:12
Creatinine 3.4 mg/dL (0.7-1.3) H 10/21/23 06:12
eGFR 18.07 10/21/23 06:12
Glucose 81 mg/dl (70-99) 10/21/23 06:12
Calcium 6.5 mg/dl (8.4-10.2) L* 10/21/23 06:12
Phosphorus 6.4 mg/dl (2.5-4.5) H 10/21/23 06:12
Albumin 2.6 g/dl (3.5-5.0) L 10/21/23 06:12
Physical Exam
-
Vital Signs:
Vital Signs
Temp Pulse Resp BP Pulse Ox
97.7 F 85 16 148/100 96
10/21/23 07:16 10/21/23 07:16 10/21/23 07:16 10/21/23 07:16 10/21/23 07:16
Cardiovascular:: Regular rate and rhythm
Respiratory:: Bilateral: Coarse
Lung Excursion:: Normal
Abdomen:: Nontender and Soft
Bowel Sounds:: Normal
Extremity Edema:: None: Bilateral:
Villaseñor Catheter: No
[2023-10-21 15:31] VITALS: BP 135/53
[2023-10-21 23:04] VITALS: BP 126/85
[2023-10-22] MEDS: SODIUM BICARBONATE 1150 MEQ IV (04:22)
[2023-10-22 05:38] LABS: Hematocrit 31.8 % (39.0-52.0); Hemoglobin 10.5 g/dL (13.0-18.0); Mean Corpuscular Hgb 32.9 pg (27.0-31.0); Mean Corpuscular Volume 99.7 fL (80.0-94.0); Mean Platelet Volume 10.4 fL (7.4-10.4); Platelet Count 300 10^3/uL (130-400); Red Blood Cell Count 3.19 10^6/uL (4.70-6.10); Red Cell Dist. Width 14.4 % (11.5-14.5); White Blood Cell Count 9.7 10^3/uL (4.8-10.8)
[2023-10-22 05:49] LABS: ALT (SGPT) 90 U/L (0-50); AST (SGOT) 346 U/L (17-59); Albumin 2.9 g/dl (3.5-5.0); Alkaline Phosphatase 308 U/L (38-126); Blood Urea Nitrogen 84 mg/dl (9-20); Calcium 6.7 mg/dl (8.4-10.2); Carbon Dioxide 23 mmol/L (22-30); Chloride 97 mmol/L (98-107); Estimated Creatinine Clearance 20 ml/min; Glucose 141 mg/dl (70-99); Magnesium 1.9 mg/dl (1.6-2.3); Sodium 133 mmol/L (135-145); Total Bilirubin 0.8 mg/dl (0.2-1.3); Total Protein 5.6 g/dl (6.3-8.2); eGFR 19.44
[2023-10-22] MEDS: CALCIUM GLUCONATE 100 IV (06:55)
[2023-10-22 07:00] VITALS: BP 135/92
--- NOTE | 2023-10-22 08:56 | W.PN.HOSP.TC ---
Today's Communication/Plan
-
see bold
Assessment / Plan
Assessment / Plan
HPI 73-year-old male with a past medical history of neuroendocrine tumor with metastases to the liver and bone, prostate cancer, TIA, hypertension, gout, and posttraumatic stress disorder presents with a 1 week history of HPI: 73-year-old male with
a past medical history of neuroendocrine tumor with metastases to the liver and bone, prostate cancer, TIA, hypertension, gout, and posttraumatic stress disorder presents with a 1 week history of worsening dysphagia, and inability to eat/drink.
Patient reports that food and liquids get stuck in the back of his throat. He had blood work done yesterday, which shows acute kidney injury. He does report feeling weak, and tired. He denies regurgitating food or liquids. He does report coughing
with trying to eat or drink. He has been unable to take his medications. No chest pain, shortness of breath, or palpitations. No fever.
#Severe dysphagia
Speech evaluation with VSE appreciated high risk for aspiration
GI eval appreciated DHT to be placed pending PEG, patient in agreement
S/p DHT left nare by GI 10/20, started on tube feeds, currently tolerating
Monitor for refeeding syndrome
#Neuroendocrine tumor with metastases to the bone and liver
Follows with Dr. House. Oncology consult appreciated.
Patient understands he is dying, but wishes to have more time so he can say goodbye to his family
He is declining hospice at this point
#Acute kidney injury secondary to ATN from dehydration
#Metabolic Acidosis
#Persistent Hyperkalemia
#Oliquric
Hold eplerenone
Appreciate nephrology input, continue sodium bicarb IV fluid
Creatinine improved today at 3.2, from 3.4, was 3.0 upon admission
#Hypocalcemia
#Vitamin D deficiency
IV repletion as needed
#Transaminitis
#Hepatomegaly
Due to liver metastases
improving
#Chronic normocytic anemia
Trend hemoglobin
#History of benign essential hypertension
Holding eplerenone, hydralazine, atenolol d/t dysphagia (eplerenone also on hold for NANDO as above)
IV hydralazine prn, as not required so far
#Gastroesophageal reflux disease
PPI IV
#Posttraumatic stress disorder
Hold bupropion
DVT prophylaxis�subcu heparin
DNR confirmed by patient upon admission
Updated family at bedside 10/21
Total time spent to see the patient on the floor, examine the patient, review data and lab results, discuss treatment plan with patient, nursing staff around 36 minutes.
Physical Exam
General: No Apparent Distress, Appears chronically ill
HEENT: NormoCephalic and Anicteric, +DHT
Respiratory: Clear
Cardiac: S1/S2 and Regular Rhythm
GI: Soft, Distended, Severe hepatomegaly noted
Musculoskeletal: No Clubbing and No Cyanosis
Skin: Warm and Dry
Neuro: Awake, Alert and Oriented
Psych: Calm
Anticipated Discharge: > 48 hours
Subjective/Interval History
-
Date of Service: October 22, 2023
Patient denies chest pain, shortness of breath, problems breathing. He is tolerating his tube feeds. No fever, no vomiting.
Objective Data
-
Labs:
Laboratory Results
10/22/23
05:03
WBC 9.7
Hgb 10.5 L
Hct 31.8 L
Plt Count 300
Sodium 133 L
Potassium 4.0
Chloride 97 L
Carbon Dioxide 23
BUN 84 H
Creatinine 3.2 H
Glucose 141 H
Calcium 6.7 L*
Total Bilirubin 0.8
AST 346 H
ALT 90 H
Alkaline Phosphatase 308 H
Vital Signs:
Vital Signs
Temp Pulse Resp BP Pulse Ox
97.8 F 87 18 135/92 94
10/22/23 07:00 10/22/23 07:00 10/22/23 07:00 10/22/23 07:00 10/22/23 07:00
I&O
10/21/23 10/22/23 10/23/23
06:59 06:59 06:59
Intake Total 2700 / 2700 1295 / 1295
Output Total 250 / 250 300 / 300
Balance 2450 / 2450 995 / 995
[2023-10-22] MEDS: NSS (PRESERVATIVE FREE) 10 ML IV (09:11)
[2023-10-22] MEDS: PROTONIX IV 40 MG IV (09:11)
[2023-10-22] MEDS: HEPARIN 5000 UNITS SC ×2 (09:11→19:53)
[2023-10-22] MEDS: DILAUDID 0.5 MG IV ×3 (09:15→21:09)
--- NOTE | 2023-10-22 12:01 | W.PN.NEPH.PH ---
Today's Communication / Plan
-
- monitor for refeeding
Assessment/Plan
-
Assessment:
Severe dysphagia
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
NANDO
Transaminitis
HyperK
Anemia
HTN
HAGMA
Plan:
NANDO
- likely pre-renal disease leading to ATN. bl Cr around 0.8-1, peak 3.4, down to 3.2 today
- UA with ketones and some blood
- CT A/P: no ureteral dilatation
- encourage replacement fluids as you are doing
HAGMA
- lactate not elevated
- beta hydroxybutyrate elevated --> starvation
- likely in the setting of NANDO and BUN, starvation
C/f refeeding syndrome
- replete Mg and calcium aggressively
- phos elevated (in setting of NANDO, no need to replete)
- DHT in place
HTN
- normotensive currently
- CTM
- hold BP meds
-
-
Date of Service: October 22, 2023
CC / HPI / ROS
-
Chief Complaint:
NANDO
History of Present Illness:
Cr elevation to 3.2
hypocalcemia
Review of Systems:
patient feels fatigued
not ready for hospice
Labs
-
Labs:
WBC 9.7 10^3/uL (4.8-10.8) 10/22/23 05:03
RBC 3.19 10^6/uL (4.70-6.10) L 10/22/23 05:03
Hgb 10.5 g/dL (13.0-18.0) L 10/22/23 05:03
Hct 31.8 % (39.0-52.0) L 10/22/23 05:03
Plt Count 300 10^3/uL (130-400) 10/22/23 05:03
Sodium 133 mmol/L (135-145) L 10/22/23 05:03
Potassium 4.0 mmol/L (3.5-5.1) 10/22/23 05:03
Chloride 97 mmol/L (98-107) L 10/22/23 05:03
Carbon Dioxide 23 mmol/L (22-30) 10/22/23 05:03
BUN 84 mg/dl (9-20) H 10/22/23 05:03
Creatinine 3.2 mg/dL (0.7-1.3) H 10/22/23 05:03
eGFR 19.44 10/22/23 05:03
Glucose 141 mg/dl (70-99) H 10/22/23 05:03
Calcium 6.7 mg/dl (8.4-10.2) L* 10/22/23 05:03
Phosphorus 6.0 mg/dl (2.5-4.5) H 10/22/23 05:03
Albumin 2.9 g/dl (3.5-5.0) L 10/22/23 05:03
Physical Exam
-
Vital Signs:
Vital Signs
Temp Pulse Resp BP Pulse Ox
97.8 F 87 18 135/92 94
10/22/23 07:00 10/22/23 07:00 10/22/23 07:00 10/22/23 07:00 10/22/23 07:00
Cardiovascular:: Regular rate and rhythm
Respiratory:: Bilateral: Coarse
Lung Excursion:: Normal
Abdomen:: Nontender and Soft
Bowel Sounds:: Normal
Extremity Edema:: None: Bilateral:
Villaseñor Catheter: No
[2023-10-22 15:00] VITALS: BP 138/88
--- NOTE | 2023-10-22 15:22 | CM ---
Patient was sound asleep; spoke with his daughter, Patrick Mora # [phone], via phone; initial assessment completed
Pharmacy verified: [facility], [id number] [facility] [place]
Chart reviewed: Dobbhoff tube left nares inserted 10/21/23; tube feeding started; tolerating. Patient has neuroendocrine tumor with Mets to Liver and Bone; Hx: Prostate CA, TIA, PTSD, NANDO
Daughter, Patrick reported that her father lives alone in a 2 story home; 3 steps to enter; 6 steps to 2nd floor. First floor set up with full bath/stall shower/seat
PLOF: per daughter, patient has been on his own; ex- is supportive; and that he was ambulating with a Walker; no longer driving
SNF/Home Health utilization history: none
Transportation: family will transport when discharged
Daughter reported that she will be visiting her father tomorrow to discuss Home Hospice Care; she stated that he will refuse to go to a SNF
Plan: per daughter her father will discharge to his ex-, Adriana Stone's home in [place], [place]
If patient agrees to Home Hospice, Hospice should contact his ex-, Adriana Stone @ #[phone], to plan home hospice logistics/needs
--- NOTE | 2023-10-22 15:30 | W.PN.GI.CBS2 ---
Today's Communication / Plan
-
Continue TF via DHT
Monitor lytes
Pt agreeable to PEG. Will keep NPO p MN for PEG tomorrow
Assessment / Plan
-
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 After completed he noted concern for wt loss and early satiety. Ct at that time with
concern for liver mets and underdistention of wall of stomach and nodular wall thickening of duodenum and MRI with hepatic and osseous mets and adrenal adenoma. He proceeded to EGD with gastric lymphangioectasia stomach papule with neg bx. then
liver biopsy with noted concern for neuroendocrine tumor with large cell features. He had pet scan in May with widespread osteolytic mets, with extensive hepatic mets and uptake in rectosigmoid junction possible polyp. he states he then
started with treatment with oncology and now on 3rd course with start of Opdivo and Yervoy this week. He relates he has been living on ensure for several months but now unable to eval swallow ensure with 50 lbs wt loss since last fall with
10/19 VSE- There was aspiration with thin liquid by cup with no spontaneous cough, and deep penetration with nectar consistency by cough. Aspiration was noted on residual.
Impression:
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
-dysphagia (likely oropharyngeal) with inability to eat
-wt loss 50 + lbs
-prior parathyroid neck resection of Adenoma
-elevated LFT's with marked elevated AST
-Acute on chronic CKD
-pet 05/2023 with uptake rectosigmoid, possible small polyp no seen on follow up
-hypoalbuminemia
other med problems:
-prostate CA with radiation
-colon polyp last screening 2006
-HTN
-CVA/TIA
-gout
-sleep apnea
Subjective
Subjective
Date of Service: October 22, 2023
Tolerating TF via L nares
Objective
Data Reviewed
Laboratory Data:
Laboratory Results
10/22/23 05:03
10/22/23 05:03
Laboratory Results
Phosphorus 6.0 mg/dl (2.5-4.5) H 10/22/23 05:03
Magnesium 1.9 mg/dl (1.6-2.3) 10/22/23 05:03
Total Bilirubin 0.8 mg/dl (0.2-1.3) 10/22/23 05:03
AST 346 U/L (17-59) H 10/22/23 05:03
ALT 90 U/L (0-50) H 10/22/23 05:03
Alkaline Phosphatase 308 U/L (38-126) H 10/22/23 05:03
Vital Signs and I&O:
Vital Signs
Temp Pulse Resp BP Pulse Ox
97.8 F 87 18 135/92 94
10/22/23 07:00 10/22/23 07:00 10/22/23 07:00 10/22/23 07:00 10/22/23 07:00
I&O
10/21/23 10/22/23 10/23/23
06:59 06:59 06:59
Intake Total 2700 / 2700 1295 / 1295
Output Total 250 / 250 300 / 300
Balance 2450 / 2450 995 / 995
Physical Exam
Physical Exam
GI: Soft, Non Distended and Non Tender
[2023-10-22] MEDS: SODIUM BICARBONATE 1075 MEQ IV (20:52)
[2023-10-22 23:15] VITALS: BP 133/96
[2023-10-23] VITALS (8 sets, daily range): BP systolic 99–128; BP diastolic 72–91
[2023-10-23] MEDS: DILAUDID 0.5 MG IV ×3 (01:43→19:51)
[2023-10-23 05:13] LABS: Hematocrit 31.7 % (39.0-52.0); Hemoglobin 10.6 g/dL (13.0-18.0); Mean Corp Hgb Conc. 33.4 g/dL (33.0-37.0); Mean Corpuscular Hgb 33.4 pg (27.0-31.0); Mean Platelet Volume 10.6 fL (7.4-10.4); Platelet Count 273 10^3/uL (130-400); Red Blood Cell Count 3.17 10^6/uL (4.70-6.10); Red Cell Dist. Width 14.4 % (11.5-14.5); White Blood Cell Count 10.3 10^3/uL (4.8-10.8)
[2023-10-23 05:34] LABS: ALT (SGPT) 73 U/L (0-50); AST (SGOT) 370 U/L (17-59); Albumin 2.8 g/dl (3.5-5.0); Alkaline Phosphatase 302 U/L (38-126); Blood Urea Nitrogen 81 mg/dl (9-20); Calcium 6.5 mg/dl (8.4-10.2); Carbon Dioxide 28 mmol/L (22-30); Chloride 96 mmol/L (98-107); Estimated Creatinine Clearance 22 ml/min; Glucose 117 mg/dl (70-99); Magnesium 1.7 mg/dl (1.6-2.3); Phosphorus 4.9 mg/dl (2.5-4.5); Potassium 3.9 mmol/L (3.5-5.1); Sodium 136 mmol/L (135-145); Total Bilirubin 0.8 mg/dl (0.2-1.3); Total Protein 5.7 g/dl (6.3-8.2); eGFR 22.81
[2023-10-23] MEDS: CALCIUM GLUCONATE 130 MG IV (06:03)
[2023-10-23] MEDS: HEPARIN 5000 UNITS SC ×2 (07:23→19:52)
[2023-10-23] MEDS: PROTONIX IV 40 MG IV (07:29)
[2023-10-23] MEDS: NSS (PRESERVATIVE FREE) 10 ML IV (07:29)
--- NOTE | 2023-10-23 07:36 | W.PN.HOSP.TC ---
Today's Communication/Plan
-
Consult hospice
Assessment / Plan
Assessment / Plan
HPI 73-year-old male with a past medical history of neuroendocrine tumor with metastases to the liver and bone, prostate cancer, TIA, hypertension, gout, and posttraumatic stress disorder presents with a 1 week history of HPI: 73-year-old male with
a past medical history of neuroendocrine tumor with metastases to the liver and bone, prostate cancer, TIA, hypertension, gout, and posttraumatic stress disorder presents with a 1 week history of worsening dysphagia, and inability to eat/drink.
Patient reports that food and liquids get stuck in the back of his throat. He had blood work done yesterday, which shows acute kidney injury. He does report feeling weak, and tired. He denies regurgitating food or liquids. He does report coughing
with trying to eat or drink. He has been unable to take his medications. No chest pain, shortness of breath, or palpitations. No fever.
#Severe dysphagia
Speech evaluation with VSE appreciated high risk for aspiration
GI eval appreciated DHT to be placed pending PEG, patient in agreement
S/p DHT left nare by GI 10/20, tolerated tube feeds, self pulled DHT 10/22
S/p PEG on 10/22 -await GI regarding when it can be used
Monitor for refeeding syndrome
#Neuroendocrine tumor with metastases to the bone and liver
Follows with Dr. House. Oncology consult appreciated.
Patient and family now agreeable to hospice, consult hospice 10/22
They would like to go home with hospice when able
#Shortness of breath
#Bilateral lower extremity edema
Reports breathing improved after pulling out DHT
Third spacing secondary to hypoalbuminemia
Chest x-ray negative for pulmonary edema, does show small right pleural effusion, elevated right hemidiaphragm
BNP 13,500, continue to monitor respiratory status
#Acute kidney injury secondary to ATN from dehydration
#Metabolic Acidosis
#Persistent Hyperkalemia
#Oliquric
Hold eplerenone
Appreciate nephrology input, continue gentle IVFs
Creatinine improved today at 2.8, was 3.2, from 3.4, was 3.0 upon admission
#Hallucinations
#Toxic metabolic encephalopathy
Supportive care
#Hypocalcemia
#Vitamin D deficiency
IV repletion as needed
#Transaminitis
#Hepatomegaly
Due to liver metastases
improving
#Chronic normocytic anemia
Trend hemoglobin
#History of benign essential hypertension
Holding eplerenone, hydralazine, atenolol d/t dysphagia (eplerenone also on hold for NANDO as above)
IV hydralazine prn, as not required so far
#Gastroesophageal reflux disease
PPI IV
#Posttraumatic stress disorder
Hold bupropion
DVT prophylaxis�subcu heparin
DNR confirmed by patient upon admission
Updated daughter on phone 10/22
Total time spent to see the patient on the floor, examine the patient, review data and lab results, discuss treatment plan with patient, nursing staff around 52 minutes.
Physical Exam
General: No Apparent Distress, Appears chronically ill
HEENT: NormoCephalic and Anicteric
Respiratory: Severely diminished breath sounds at the right lung base, fine left basilar crackles
Cardiac: S1/S2 and Regular Rhythm
GI: Soft, Distended, Severe hepatomegaly noted
Extremities: No Clubbing and No Cyanosis
Bilateral lower extremity edema noted
Skin: Warm and Dry
Neuro: Awake, Alert and Oriented
Anticipated Discharge: 24 - 48 hours
Subjective/Interval History
-
Date of Service: October 23, 2023
Patient reports feeling short of breath. He pulled out his Dobbhoff tube. Reports his shortness of breath is better after pulling out the tube. No fever, no vomiting.
Objective Data
-
Labs:
Laboratory Results
10/23/23
04:46
WBC 10.3
Hgb 10.6 L
Hct 31.7 L
Plt Count 273
Sodium 136
Potassium 3.9
Chloride 96 L
Carbon Dioxide 28
BUN 81 H
Creatinine 2.8 H
Glucose 117 H
Calcium 6.5 L*
Total Bilirubin 0.8
AST 370 H
ALT 73 H
Alkaline Phosphatase 302 H
Vital Signs:
Vital Signs
Temp Pulse Resp BP Pulse Ox
97.9 F 97 18 133/96 94
10/22/23 23:15 10/22/23 23:15 10/22/23 23:15 10/22/23 23:15 10/22/23 23:15
I&O
10/22/23 10/23/23 10/24/23
06:59 06:59 06:59
Intake Total 1295 / 1295 1575 / 1575
Output Total 300 / 300 525 / 525
Balance 995 / 995 1050 / 1050
[2023-10-23 10:08] LABS: NT-proBNP 13500 pg/ml
--- NOTE | 2023-10-23 11:16 | W.PN.UPDATE ---
Update Note
Progress Note Update
Brief General Surgery Note.
General Surgery consulted to assist with endoscopic PEG placement. CT reviewed. Large left lobe of liver with significant met burden. Very small window noted possibly in LUQ. May need a surgical G tube but will proceed with endoscopic placement for
now.
--- NOTE | 2023-10-23 11:55 | OR.RPT ---
Operative Report
Operative Report
Patient Name: Temo Stone
: 1950
Date of Operation: 10/23/2023
Preoperative Diagnosis: Need for feeding access
Postoperative Diagnosis: Same
Procedure(s):
Percutaneous endoscopic gastrostomy
Surgeon(s):
Dr. Plascencia
Endoscopist(s):
Dr. Vega
Anesthesia: General
Estimated Blood Loss: 1 cc
Urine Output: None
Drains/Lines/Implants: 20 [place] PEG tube
Specimens: None
Indication/Findings at the time of surgery:
Please see GI notes. 73-year-old male metastatic cancer to the liver with hepatomegaly noted on CT and physical exam. I was a little skeptical whether he would have a sufficient window preoperatively however under insufflation we were able to find
good area of transillumination and one-to-one the stomach.
Details of the operation:
After inducing general anesthesia and placement of a mouth guard, an upper endoscopy was performed by the rail technician (see their note for further details) an appropriate site for the PEG tube was identified in the left upper quadrant just
below palpable margin of the liver. This was confirmed by good one-to-one, and transillumination. The overlying skin was infiltrated with lidocaine and a small stab incision was made. The introducer needle was inserted through the stab incision,
abdominal wall and into the stomach. This required 2 passes. The blue guidewire was inserted through the sheath and was captured by an endoscopic snare. A 20 [place] PEG tube was then advanced along the tract. The external bumper and tube feeding
attachment were placed. The tube was noted to be 2 cm at the skin. There was minimal blood loss. The patient returned to the recovery room in stable condition. Sponge and instrument counts were correct. No specimen sent to pathology from our
portion of the procedure.
I was the attending physician and performed the procedure with no assistance. I was present for all portions of the case
Taran Plascencia MD
--- NOTE | 2023-10-23 12:21 | CM ---
Addendum entered by AARON Duval 10/23/23 16:40:
Received consult for hospice. Messaged [facility] for [facility]. Will send referral.
Addendum entered by AARON Duval 10/23/23 12:27:
Patient's daughter stated that she would like w/c van discharge as they think it would be too difficult for patient to travel in family car.
Attending stated that she is awaiting for official determination from Oncology.
Original Note:
Reviewed chart, met with patient's daughter who stated that family is opting for hospice. Messaged attending to get an order if appropriate. Patient's daughter stated that she would like for patient to go to '[facility] [place] ([facility] [id number]
[facility] [id number] as they have a set up there.
Will await consult and then send referral. Family wants [facility] if they go out that far.
Plan: Case management will continue to follow and assist with discharge planning. Home with hospice when stable for discharge.
[2023-10-23] MEDS: SODIUM BICARBONATE IV (12:41)
--- NOTE | 2023-10-23 13:12 | W.PN.NEPH.PH ---
Today's Communication / Plan
-
IVF
Assessment/Plan
-
Assessment:
Severe dysphagia
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
NANDO
Transaminitis
HyperK
Anemia
HTN
HAGMA
Plan:
follow BMP
replete Calcium
continue IVF with D5
trickle TF today
-
-
Date of Service: October 23, 2023
CC / HPI / ROS
-
Chief Complaint:
NANDO
History of Present Illness:
NANDO/Cr down to 2.8
s/p PEG 10/23/23
LFTs high stable
hypocalcemia still 6.5
Review of Systems:
patient feels fatigued
no CP
edema unchanged
Labs
-
Labs:
WBC 10.3 10^3/uL (4.8-10.8) 10/23/23 04:46
RBC 3.17 10^6/uL (4.70-6.10) L 10/23/23 04:46
Hgb 10.6 g/dL (13.0-18.0) L 10/23/23 04:46
Hct 31.7 % (39.0-52.0) L 10/23/23 04:46
Plt Count 273 10^3/uL (130-400) 10/23/23 04:46
Sodium 136 mmol/L (135-145) 10/23/23 04:46
Potassium 3.9 mmol/L (3.5-5.1) 10/23/23 04:46
Chloride 96 mmol/L (98-107) L 10/23/23 04:46
Carbon Dioxide 28 mmol/L (22-30) 10/23/23 04:46
BUN 81 mg/dl (9-20) H 10/23/23 04:46
Creatinine 2.8 mg/dL (0.7-1.3) H 10/23/23 04:46
eGFR 22.81 10/23/23 04:46
Glucose 117 mg/dl (70-99) H 10/23/23 04:46
Calcium 6.5 mg/dl (8.4-10.2) L* 10/23/23 04:46
Phosphorus 4.9 mg/dl (2.5-4.5) H 10/23/23 04:46
Dkf-N-Tfggfkxavye Pept 45191 pg/ml 10/23/23 04:46
Albumin 2.8 g/dl (3.5-5.0) L 10/23/23 04:46
Physical Exam
-
Vital Signs:
Vital Signs
Temp Pulse Resp BP Pulse Ox
97.6 F 89 20 99/72 97
10/23/23 12:05 10/23/23 12:05 10/23/23 12:05 10/23/23 12:05 10/23/23 12:05
Cardiovascular:: Regular rate and rhythm
Respiratory:: Bilateral: Coarse
Lung Excursion:: Normal
Abdomen:: Nontender and Soft
Bowel Sounds:: Normal
Extremity Edema:: +3: Bilateral:
[2023-10-23] MEDS: D5/0.9% SODIUM CHLORIDE 1000 IV (16:01)
--- NOTE | 2023-10-23 21:45 | W.PN.ONC2 ---
Today's Communication / Plan
-
Agree with plans for hospice. D/w pt and with his daughter.
Impression
Impression
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
Metastatic lesions in liver and spine
IgM kappa monoclonal gammopathy, currently with stable labs
Hypercalcemia, PTH consistent with non-parathyroid etiology
Hx prostate cancer, Licha 9, status post external beam radiation followed by two years of Lupron
Cancer-related pain
Strong family history of prostate cancer
Personal history of parathyroid adenoma s/p resection
Failure to thrive
Plan
Plan
Plan
1. High-grade Neuroendocrine Carcinoma of Undetermined Primary:
- Pt with little to no response to first-line carboplatin and etosoposide, with LFT's abnormalities that obligated dose reductions in etoposide.
- Ipilimumab and nivolumab (ipi-nivo) treatment represents a category 2B NCCN recommendation for met dz with progression. Some of his liver lesions are indeed larger and given non-response to front-line chemotherapy, this is a reasonable option for
him.
2. Failure to thrive
- Pt now s/p PEG placement
- Discussed options of active treatment, best supportive care, hospice. Pt and family opting for hospice.
Subjective/Objective
Chief Complaint
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
Subjective
Continues to feel very weak, not much improved with adequate hydration.
Getting feeding tube today
He and family have decided on hospice.
Vital Signs:
Vital Signs
Temp Pulse Resp BP Pulse Ox
97.8 F 97 18 122/80 94
10/23/23 19:27 10/23/23 19:27 10/23/23 19:27 10/23/23 19:27 10/23/23 19:27
Lab Results:
Laboratory Data
WBC 10.3 10^3/uL (4.8-10.8) 10/23/23 04:46
Hgb 10.6 g/dL (13.0-18.0) L 10/23/23 04:46
Plt Count 273 10^3/uL (130-400) 10/23/23 04:46
eGFR 22.81 10/23/23 04:46
Physical Exam
Awake, alert, appropriate
Dilated L pupil
[2023-10-24 03:02] VITALS: BP 132/84
[2023-10-24] MEDS: DILAUDID 0.5 MG IV ×3 (03:08→21:47)
[2023-10-24 05:38] VITALS: BMI 20.9
[2023-10-24 06:08] LABS: Hematocrit 32.5 % (39.0-52.0); Hemoglobin 10.7 g/dL (13.0-18.0); Mean Corp Hgb Conc. 32.9 g/dL (33.0-37.0); Mean Corpuscular Hgb 32.5 pg (27.0-31.0); Mean Corpuscular Volume 98.8 fL (80.0-94.0); Mean Platelet Volume 10.6 fL (7.4-10.4); Platelet Count 282 10^3/uL (130-400); Red Blood Cell Count 3.29 10^6/uL (4.70-6.10); Red Cell Dist. Width 14.7 % (11.5-14.5); White Blood Cell Count 12.6 10^3/uL (4.8-10.8)
--- NOTE | 2023-10-24 06:13 | W.PN.HOSP.TC ---
Today's Communication/Plan
-
pain control
Tube feeds ordered
Discontinue IVF when tube feeds are started
discharge planning home hospice tomorrow 10-11AM
Assessment / Plan
Assessment / Plan
HPI 73-year-old male with a past medical history of neuroendocrine tumor with metastases to the liver and bone, prostate cancer, TIA, hypertension, gout, and posttraumatic stress disorder presents with a 1 week history of HPI: 73-year-old male with
a past medical history of neuroendocrine tumor with metastases to the liver and bone, prostate cancer, TIA, hypertension, gout, and posttraumatic stress disorder presents with a 1 week history of worsening dysphagia, and inability to eat/drink.
Patient reports that food and liquids get stuck in the back of his throat. He had blood work done yesterday, which shows acute kidney injury. He does report feeling weak, and tired. He denies regurgitating food or liquids. He does report coughing
with trying to eat or drink. He has been unable to take his medications. No chest pain, shortness of breath, or palpitations. No fever.
#Severe dysphagia
Speech evaluation with VSE appreciated high risk for aspiration
GI eval appreciated
S/p DHT left nare by GI 10/20, tolerated tube feeds, self pulled DHT 10/22
S/p PEG on 10/22 cleared for tube feed as per GI 10/23
Tube feeds ordered, IVF to be discontinued when tube feeds are started
#Neuroendocrine tumor with metastases to the bone and liver
Follows with Dr. House. Oncology consult appreciated.
Patient and family pursuing hospice care
Hospice eval appreciated planned for home hospice 10/24 10-11AM
#Shortness of breath
#Bilateral lower extremity edema
Reports breathing improved after pulling out DHT
Third spacing secondary to hypoalbuminemia
Chest x-ray negative for pulmonary edema, does show small right pleural effusion, elevated right hemidiaphragm
BNP 13,500, continue to monitor respiratory status
#Acute kidney injury secondary to ATN from dehydration
#Metabolic Acidosis
#Persistent Hyperkalemia
#Oliquric
Hold eplerenone
Nephro eval appreciated
Cr improving prior to discharge
#Hallucinations
#Toxic metabolic encephalopathy
Supportive care
#Hypocalcemia
#Vitamin D deficiency
repleted
#Transaminitis
#Hepatomegaly
Due to liver metastases
#Chronic normocytic anemia
H&H stable
#History of benign essential hypertension
Holding eplerenone, hydralazine, atenolol d/t dysphagia (eplerenone also on hold for NANDO as above)
IV hydralazine prn, not required so far
#Gastroesophageal reflux disease
PPI IV
#Posttraumatic stress disorder
Hold bupropion
DVT prophylaxis�subcu heparin
DNR confirmed by patient upon admission
Total time spent to see the patient on the floor, examine the patient, review data and lab results, discuss treatment plan with patient, nursing staff around 50 minutes.
Physical Exam
General: No Apparent Distress, Appears chronically ill
HEENT: NormoCephalic and Anicteric
Respiratory: Severely diminished breath sounds at the right lung base, fine left basilar crackles
Cardiac: S1/S2 and Regular Rhythm
GI: Soft, Distended, Severe hepatomegaly noted, PEG tube in place
Extremities: No Clubbing and No Cyanosis
Bilateral lower extremity edema noted
Skin: Warm and Dry
Neuro: Awake, Alert and Oriented
Anticipated Discharge: Within 24 hours
Subjective/Interval History
-
Date of Service: October 24, 2023
No acute distress. Pain controlled with current regimen.
Objective Data
-
Labs:
Laboratory Results
10/24/23
05:44
WBC 12.6 H
Hgb 10.7 L
Hct 32.5 L
Plt Count 282
Sodium Pending
Potassium Pending
Chloride Pending
Carbon Dioxide Pending
BUN Pending
Creatinine Pending
Glucose Pending
Calcium Pending
Total Bilirubin Pending
AST Pending
ALT Pending
Alkaline Phosphatase Pending
Vital Signs:
Vital Signs
Temp Pulse Resp BP Pulse Ox
98.9 F 97 18 132/84 94
10/24/23 03:02 10/24/23 03:02 10/24/23 03:02 10/24/23 03:02 10/24/23 03:02
I&O
10/22/23 10/23/23 10/24/23
06:59 06:59 06:59
Intake Total 1295 / 1295 1575 / 1575 100 / 100
Output Total 300 / 300 525 / 525 250 / 250
Balance 995 / 995 1050 / 1050 -150 / -150
[2023-10-24 06:38] LABS: ALT (SGPT) 65 U/L (0-50); AST (SGOT) 684 U/L (17-59); Albumin 2.8 g/dl (3.5-5.0); Alkaline Phosphatase 283 U/L (38-126); Blood Urea Nitrogen 80 mg/dl (9-20); Calcium 6.7 mg/dl (8.4-10.2); Carbon Dioxide 29 mmol/L (22-30); Chloride 98 mmol/L (98-107); Estimated Creatinine Clearance 23 ml/min; Glucose 113 mg/dl (70-99); Magnesium 1.6 mg/dl (1.6-2.3); Phosphorus 5.4 mg/dl (2.5-4.5); Sodium 138 mmol/L (135-145); Total Bilirubin 0.8 mg/dl (0.2-1.3); Total Protein 5.7 g/dl (6.3-8.2); eGFR 23.83
[2023-10-24 07:00] VITALS: BP 134/90
--- NOTE | 2023-10-24 07:01 | W.PN.GI.CBS2 ---
Today's Communication / Plan
-
Please see assessment and plan for details.
Assessment / Plan
-
1. Dysphagia: Status post PEG tube, overall doing well. Continue local PEG care, okay to use PEG tube and start tube feedings per nutrition recommendations.
We will sign off for now, please call back with any further questions.
Subjective
Subjective
Date of Service: October 24, 2023
Patient feeling okay overall, denies any abdominal pain, no issues overnight.
Objective
Data Reviewed
Laboratory Data:
Laboratory Results
10/24/23 05:44
10/24/23 05:44
Laboratory Results
Phosphorus 5.4 mg/dl (2.5-4.5) H 10/24/23 05:44
Magnesium 1.6 mg/dl (1.6-2.3) 10/24/23 05:44
Total Bilirubin 0.8 mg/dl (0.2-1.3) 10/24/23 05:44
AST 684 U/L (17-59) H* 10/24/23 05:44
ALT 65 U/L (0-50) H 10/24/23 05:44
Alkaline Phosphatase 283 U/L (38-126) H 10/24/23 05:44
Vital Signs and I&O:
Vital Signs
Temp Pulse Resp BP Pulse Ox
98.9 F 97 18 132/84 94
10/24/23 03:02 10/24/23 03:02 10/24/23 03:02 10/24/23 03:02 10/24/23 03:02
I&O
10/23/23 10/24/23 10/25/23
06:59 06:59 06:59
Intake Total 1575 / 1575 700 / 700
Output Total 525 / 525 250 / 250
Balance 1050 / 1050 450 / 450
Physical Exam
Physical Exam
General: NAD
Abdomen: normal bowel sounds, soft, no tenderness, no masses or bruits, no ascites, PEG site clean, dry and intact, bumper 2 cm with appropriate tightness
[2023-10-24] MEDS: CALCIUM GLUCONATE 130 MG IV (07:43)
[2023-10-24] MEDS: HEPARIN 5000 UNITS SC ×2 (07:47→21:46)
[2023-10-24] MEDS: PROTONIX IV 40 MG IV (07:48)
[2023-10-24] MEDS: NSS (PRESERVATIVE FREE) 10 ML IV (07:48)
--- NOTE | 2023-10-24 09:44 | HOSPNOTE ---
Spoke at length with green ware caster and daughter. The patient will be going home tomorrow 10/24, equipment was ordered today for delivery. Everyone is in agreement with hospice and the philosophy. Attending and case management aware of plan.
[2023-10-24] MEDS: D5/0.9% SODIUM CHLORIDE 1000 IV (12:23)
[2023-10-24 15:00] VITALS: BP 137/98
--- NOTE | 2023-10-24 15:05 | CM ---
Case management following for d/c planning
Chart reviewed
Pt for d/c tomorrow with Hospice
Family wishes to transport pt home in morning between 10:30-11AM
Plan - home with Hospice
[2023-10-24 23:18] VITALS: BP 133/86
[2023-10-25] MEDS: DILAUDID 0.5 MG IV ×2 (03:46→11:13)
[2023-10-25 06:30] VITALS: BMI 22.4
[2023-10-25 07:00] VITALS: BP 133/97
--- NOTE | 2023-10-25 07:26 | W.PN.HOSP.TC ---
Today's Communication/Plan
-
Discharge to Home Hospice
Assessment / Plan
Assessment / Plan
HPI 73-year-old male with a past medical history of neuroendocrine tumor with metastases to the liver and bone, prostate cancer, TIA, hypertension, gout, and posttraumatic stress disorder presents with a 1 week history of HPI: 73-year-old male with
a past medical history of neuroendocrine tumor with metastases to the liver and bone, prostate cancer, TIA, hypertension, gout, and posttraumatic stress disorder presents with a 1 week history of worsening dysphagia, and inability to eat/drink.
Patient reports that food and liquids get stuck in the back of his throat. He had blood work done yesterday, which shows acute kidney injury. He does report feeling weak, and tired. He denies regurgitating food or liquids. He does report coughing
with trying to eat or drink. He has been unable to take his medications. No chest pain, shortness of breath, or palpitations. No fever.
#Severe dysphagia
Speech evaluation with VSE appreciated high risk for aspiration
GI eval appreciated
S/p DHT left nare by GI 10/20, tolerated tube feeds, self pulled DHT 10/22
S/p PEG on 10/22 cleared for tube feed as per GI 10/23
#Neuroendocrine tumor with metastases to the bone and liver
Follows with Dr. House. Oncology consult appreciated.
Patient and family pursuing hospice care
Hospice eval appreciated planned for home hospice 10/24 10-11AM
#Shortness of breath
#Bilateral lower extremity edema
Reports breathing improved after pulling out DHT
Third spacing secondary to hypoalbuminemia
Chest x-ray negative for pulmonary edema, does show small right pleural effusion, elevated right hemidiaphragm
BNP 13,500, continue to monitor respiratory status
#Acute kidney injury secondary to ATN from dehydration
#Metabolic Acidosis
#Persistent Hyperkalemia
#Oliquric
Hold eplerenone
Nephro eval appreciated
Cr improving prior to discharge
#Hallucinations
#Toxic metabolic encephalopathy
Supportive care
#Hypocalcemia
#Vitamin D deficiency
repleted
#Transaminitis
#Hepatomegaly
Due to liver metastases
#Chronic normocytic anemia
H&H stable
#History of benign essential hypertension
Holding eplerenone, hydralazine, atenolol d/t dysphagia (eplerenone also on hold for NANDO as above)
IV hydralazine prn, not required so far
#Gastroesophageal reflux disease
PPI IV
#Posttraumatic stress disorder
Hold bupropion
DVT prophylaxis�subcu heparin
DNR confirmed by patient upon admission
Total Time Preparing Discharge ___50____ minutes including examination of the patient, summary of the hospital stay, instructions for continuing care to all relevant caregivers; and preparation of discharge records, prescriptions, and referral
forms if necessary.
Physical Exam
General: No Apparent Distress, Appears chronically ill
HEENT: NormoCephalic and Anicteric
Respiratory: Severely diminished breath sounds at the right lung base, fine left basilar crackles
Cardiac: S1/S2 and Regular Rhythm
GI: Soft, Distended, Severe hepatomegaly noted, PEG tube in place
Extremities: No Clubbing and No Cyanosis
Bilateral lower extremity edema noted
Skin: Warm and Dry
Neuro: Awake, Alert and Oriented
Anticipated Discharge: Today
Subjective/Interval History
-
Date of Service: October 25, 2023
No acute distress resting comfortably in bed. Reports pain well controlled at this time. Looking forward to going home
Objective Data
-
Vital Signs:
Vital Signs
Temp Pulse Resp BP Pulse Ox
98.6 F 105 18 133/86 93
10/24/23 23:18 10/24/23 23:18 10/24/23 23:18 10/24/23 23:18 10/24/23 23:18
I&O
06/10/25/23 10/26/23
06:59 06:59 06:59
Intake Total 700 / 700 610 / 610
Output Total 250 / 250 50 / 50
Balance 450 / 450 560 / 560
[2023-10-25] MEDS: PROTONIX IV 40 MG IV (08:51)
[2023-10-25] MEDS: NSS (PRESERVATIVE FREE) 10 ML IV (08:51)
[2023-10-25] MEDS: HEPARIN 5000 UNITS SC (08:51)
--- NOTE | 2023-10-25 09:05 | CM ---
Case management following for d/c planning
Chart reviewed
Pt for d/c today with Hospice
Family wishes to transport pt home between 10:30-11AM
Plan - home with Hospice
--- NOTE | 2023-10-25 10:29 | PTCARENOTE ---
patient denies pain, tolerating ice chips, tolerating tube feeding, no residual, peg tube flushes easily, patent, sits on edge of bed by self, vss, for discharge to home today on hospice. will continue to monitor.
[2023-10-25] MEDS: FLUSH (NSS) 2 FLUSH IV (11:19)
--- NOTE | 2023-10-25 12:39 | PTCARENOTE ---
pt tolerating Jevity 1.5 at 40ml/hr, for discharge to home with family.
== END 2023-10-25 12:47 | disposition hospice, home (50) | DRG 682 ==
LOC: 3 WEST ACU 11:05
PROVIDERS: Physician Assistant; Surgery; ADMITTING PHYSICIAN Family Medicine; ATTENDING PHYSICIAN Internal Medicine; CONSULT PHYSICIAN Internal Medicine Gastroenterology; CONSULT PHYSICIAN Student in an Organized Health Care Education/Training Program; EMERGENCY PHYSICIAN Emergency Medicine; FAMILY PHYSICIAN Family Medicine; OTHER PHYSICIAN Internal Medicine Hematology & Oncology
PROC: 0DH63UZ Insertion of Feeding Device into Stomach, Percutaneous Approach (ICD-10-PCS; 2023-10-23)
DX: N17.9 Acute kidney failure, unspecified (principal); E43 Unspecified severe protein-calorie malnutrition; C79.51 Secondary malignant neoplasm of bone; C7A.00 Malignant carcinoid tumor of unspecified site; C7B.02 Secondary carcinoid tumors of liver; E87.20 Acidosis, unspecified; M1A.9XX0 Chronic gout, unspecified, without tophus (tophi); D3A.8 Other benign neuroendocrine tumors; D47.2 Monoclonal gammopathy; I10 Essential (primary) hypertension; E21.3 Hyperparathyroidism, unspecified; K21.9 Gastro-esophageal reflux disease without esophagitis; N18.9 Chronic kidney disease, unspecified; Z68.22 Body mass index [BMI] 22.0-22.9, adult
CPT/HCPCS: 71045; 74018; 74230; 76770; 80053; 81003; 81015; 82010; 82306; 83605; 83735; 83880; 84100; 84443; 85025; 85027; 87086; 92526; 92610; 92611; 93005; 97162; 97166; 99285; J7030